=== PATIENT | female | born 1960 | race Caucasian/White ===

== ENCOUNTER 2020-01-28 15:19 | Outpatient (CLI) | payer OTHER, SELFPAY ==
--- NOTE | ~2020-01-28 | MM_ITS ---
EXAMINATION: MM screening billy BI w carolyn HISTORY: Screening mammogram TECHNIQUE: Craniocaudal and mediolateral oblique 3-D tomosynthesis images were obtained and synthetic 2-D images were generated. CAD analysis was submitted and interpreted. COMPARISON: 12/06/2018, 11/24/2017, 11/18/2016 bilateral digital screening mammogram examinations BREAST PARENCHYMAL COMPOSITION: There are scattered areas of fibroglandular density. FINDINGS: There is no evidence of suspicious mass, calcification, or architectural distortion to sugg est malignancy in either breast. There has been no suspicious interval change. IMPRESSION: 1. No mammographic evidence of malignancy. 2. Recommend routine screening mammography in one year. BI-RADS Category 1: Negative Reviewed, dictated and finalized at location A.
== END 2020-01-28 15:20 | disposition home or self-care (01) ==
LOC: ANHIMG 15:26
PROVIDERS: PCP Internal Medicine; Visit Provider Obstetrics & Gynecology
DX: Z12.31 Encounter for screening mammogram for malignant neoplasm of breast (principal)
CPT/HCPCS: 77063; 77067

== ENCOUNTER 2020-08-21 10:52 | Outpatient (CLI) | payer OTHER, SELFPAY | END 2020-08-21 10:53 | disposition home or self-care (01) | LOC: ANHCOVIDVC 10:52 | PROVIDERS: PCP Internal Medicine | DX: Z23 Encounter for immunization (principal) | CPT/HCPCS: 0001A; 91300 ==

== ENCOUNTER 2020-09-11 10:56 | Outpatient (CLI) | payer OTHER, SELFPAY | END 2020-09-11 10:57 | disposition home or self-care (01) | LOC: ANHCOVIDVC 10:56 | PROVIDERS: PCP Internal Medicine | DX: Z23 Encounter for immunization (principal) | CPT/HCPCS: 0002A; 91300 ==

== ENCOUNTER 2021-01-28 08:56 | Outpatient (CLI) | payer OTHER, SELFPAY ==
--- NOTE | ~2021-01-28 | MM_ITS ---
EXAMINATION: MM screening billy BI w carolyn HISTORY: Screening mammogram TECHNIQUE: Craniocaudal and mediolateral oblique 3-D tomosynthesis images were obtained and synthetic 2-D images were generated. CAD analysis was submitted and interpreted. COMPARISON: 01/28/2020, 12/06/2018, 11/24/2017 bilateral digital screening mammogram examinations BREAST PARENCHYMAL COMPOSITION: There are scattered areas of fibroglandular density. FINDINGS: Focal mammographic asymmetry is suggested in the posterior outer mid left breast (craniocau sangeeta Tomosynthesis image 22/66). Diagnostic left mammogram is recommended, with ultrasound if required . Otherwise there is no evidence of suspicious mass, calcification, or architectural distortion to sugg est malignancy in either breast. There has been no other suspicious interval change. IMPRESSION: 1. Focal asymmetry in posterior outer mid left breast 2. Diagnostic left mammogram is recommended, with ultrasound if required BI-RADS Category 0: Incomplete: Needs additional imaging evaluation. Reviewed, dictated and finalized at location A.
== END 2021-01-28 08:57 | disposition home or self-care (01) ==
LOC: ANHIMG 08:57
PROVIDERS: PCP Internal Medicine; Visit Provider Obstetrics & Gynecology
DX: Z12.31 Encounter for screening mammogram for malignant neoplasm of breast (principal); R92.8 Other abnormal and inconclusive findings on diagnostic imaging of breast
CPT/HCPCS: 77063; 77067

== ENCOUNTER 2021-08-16 11:16 | Outpatient (CLI) | payer OTHER, SELFPAY ==
--- NOTE | ~2021-08-16 | MMUS_ITS ---
EXAMINATION: MM diagnostic billy LT w carolyn, US breast LT limited HISTORY: Focal asymmetry reported in posterior outer mid left breast on 01/28/2021 craniocaudal mammog raphic Tomosynthesis image TECHNIQUE: Additional 3-D tomosynthesis images of the left breast were performed and synthetic 2-D im ages were generated. CAD analysis was submitted and interpreted. High resolution upper outer quadrant left breast ultrasound was performed. COMPARISON: 01/28/2021 bilateral screening mammogram BREAST PARENCHYMAL COMPOSITION: There are scattered areas of fibroglandular density. FINDINGS: MAMMOGRAPHIC FINDINGS: There is a history of prior benign left breast biopsy over 20 years ago. No suspicious mass or architectural distortion, malignant calcification, skin thickening or retractio n or significant new or developing density is detected. ULTRASOUND: No suspicious mass or shadowing is detected in the upper outer quadrant of the left breast. IMPRESSION: 1. No mammographic evidence of malignancy 2. Routine mammographic screening is recommended. BI-RADS Category 1: Negative Reviewed, dictated and finalized at location A. IMPRESSION: 1. No mammographic evidence of malignancy 2. Routine mammographic screening is recommended. BI-RADS Category 1: Negative
== END 2021-08-16 11:17 | disposition home or self-care (01) ==
PROVIDERS: PCP Internal Medicine; Visit Provider Obstetrics & Gynecology
DX: R92.8 Other abnormal and inconclusive findings on diagnostic imaging of breast (principal)
CPT/HCPCS: 76642; 77061; 77065; G0279

== ENCOUNTER 2022-12-14 15:50 | Outpatient (CLI) | payer OTHER, SELFPAY ==
--- NOTE | ~2022-12-14 | MM_ITS ---
EXAMINATION: MM screening [facility] carolyn HISTORY: Screening mammogram TECHNIQUE: Craniocaudal and mediolateral oblique 3-D tomosynthesis images were obtained and synthetic 2-D images were generated. CAD analysis was submitted and interpreted. COMPARISON: 08/16/2021, 01/28/2021, 01/28/2020 BREAST PARENCHYMAL COMPOSITION: There are scattered areas of fibroglandular density. FINDINGS: No suspicious mass, calcification, or architectural distortion are identified in either catherine ast to suggest malignancy. There has been no suspicious interval change. IMPRESSION: 1. No mammographic evidence of malignancy. 2. Recommend routine screening mammography in one year. BI-RADS Category 1: Negative Reviewed, dictated and finalized at location A.
== END 2022-12-14 15:51 | disposition home or self-care (01) ==
LOC: ANHIMG 15:56
PROVIDERS: PCP Internal Medicine; Visit Provider Obstetrics & Gynecology
DX: Z12.31 Encounter for screening mammogram for malignant neoplasm of breast (principal)
CPT/HCPCS: 77063; 77067

== ENCOUNTER 2023-06-23 11:11 | Outpatient (CLI) | payer OTHER, SELFPAY ==
--- NOTE | ~2023-06-23 | CT_ITS ---
Non-contrast CT scan of the Abdomen and Pelvis Clinical indication: Left flank pain Technique: 2.5 mm axial scans were obtained through the abdomen and pelvis without intravenous or or al contrast. Dose reduction technique was used on this scan by utilizing automated exposure control a nd iterative reconstruction technique. The dose-length product (DLP) was 295.58 mGy-cm. Findings: Images through the lung bases reveal no abnormalities. There is no evidence of renal or ureteral calculi. The kidneys and the ureters are nondilated. The liver, spleen, pancreas, gallbladder, and adrenals appear normal. There are atherosclerotic calci fications of the aorta. There is no evidence of bowel obstruction. There is lipoma at the descending duodenum, likely intralu vivek, measuring 3 cm in maximum length. Images through the pelvis were performed. There is no evidence of ascites or lymphadenopathy. Urinary bladder unremarkable. No pelvic mass seen. Impression: No acute abnormality evident. 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 Reviewed, dictated and finalized at [facility]. OAT PILOT Impression: No acute abnormality evident. 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
== END 2023-06-23 11:12 ==
LOC: MICIMG 11:11
PROVIDERS: PCP Internal Medicine; Visit Provider Internal Medicine
DX: R10.9 Unspecified abdominal pain (principal)
CPT/HCPCS: 74176

== ENCOUNTER → 2023-07-06 09:07 | Outpatient (CLI) | payer OTHER, SELFPAY ==
--- NOTE | ~2023-07-06 | MR_ITS ---
EXAMINATION: MR lumbar spine wo con DATE: 07/06/2023 09:36 INDICATION: Low back pain. TECHNIQUE: Magnetic resonance imaging (MRI) of the lumbar spine was performed without intravenous con trast. Sequences included sagittal T2-weighted FSE, sagittal T2-weighted FS FSE, sagittal T1-weighted FSE, and axial T2-weighted FSE. COMPARISON: None FINDINGS: Bone alignment is normal. Vertebral body heights are normal. There is mildly decreased disc height at L4-L5 and severely decreased disc height at L5-S1. The distal spinal cord signal intensity is normal. The conus medullaris is at L2. The following disc levels are specifically discussed: L1-L2: The disc does not extend beyond the endplate margin. There is no facet joint osteoarthritis. T here is no neural foraminal stenosis. There is no central canal stenosis. L2-L3: The disc is bulging. There is mild bilateral facet joint osteoarthritis. There is mild bilater al neural foraminal stenosis. There is no central canal stenosis. L3-L4: The disc is bulging. There is mild bilateral facet joint osteoarthritis. There is mild bilater al neural foraminal stenosis. There is mild central canal stenosis. L4-L5: The disc is bulging. There is moderate right and severe left facet joint osteoarthritis. There is mild right and moderate left neural foraminal stenosis. There is mild central canal stenosis. L5-S1: The disc is bulging and has an annular fissure. There is severe bilateral facet joint osteoart hritis. There is moderate bilateral neural foraminal stenosis. There is mild central canal stenosis. IMPRESSION: 1. Severe lower lumbar spondylosis. Reviewed, dictated and finalized at location A. ASTRUCTURE SECURITY ARCHITECT
== END ==
PROVIDERS: PCP Internal Medicine; Visit Provider Internal Medicine
DX: M47.896 Other spondylosis, lumbar region (principal)
CPT/HCPCS: 72148

== ENCOUNTER 2023-12-20 09:23 | Outpatient (CLI) | payer OTHER, SELFPAY ==
--- NOTE | ~2023-12-20 | MM_ITS ---
EXAMINATION: MM screening billy BI w carolyn HISTORY: Screening TECHNIQUE: Craniocaudal and mediolateral oblique 3-D tomosynthesis images were obtained and synthetic 2-D images were generated. CAD analysis was submitted and interpreted. COMPARISON: Comparison to multiple prior studies sequentially, with oldest reviewed study dated 02/06. BREAST PARENCHYMAL COMPOSITION: Not dense: There are scattered areas of fibroglandular density. FINDINGS: There is no evidence of suspicious mass, calcification, or architectural distortion to sugg est malignancy in either breast. There has been no suspicious interval change. IMPRESSION: 1. No mammographic evidence of malignancy. 2. Recommend routine screening mammography in one year. BI-RADS Category 1: Negative Reviewed, dictated and finalized at location B.
== END 2023-12-20 09:24 | disposition home or self-care (01) ==
LOC: ANHIMG 09:24
PROVIDERS: PCP Internal Medicine; Visit Provider Obstetrics & Gynecology
DX: Z12.31 Encounter for screening mammogram for malignant neoplasm of breast (principal)
CPT/HCPCS: 77063; 77067

== ENCOUNTER 2024-11-05 12:43 | Outpatient (CLI) | payer MEDICARE, SELFPAY ==
--- NOTE | ~2024-11-05 | DEXA_ITS ---
Bone Density Report Name: CARINA STALEY Age: 64 Sex: Female Ethnicity: White Date of : 1960 Indication: postmenopausal; screening for osteoporosis; asthma or emphysema; Referring Provider: KILLIAN DUKES Study: Bone densitometry was performed. Exam Date: November 05, 2024 Accession number: [id number] Bone Density: Region BMD T-score Z-score Classification AP Spine(L2, L3, L4) 1.026 -0.5 1.4 Normal Femoral Neck (Left) 0.672 -1.6 -0.1 Osteopenia Total Hip (Left) 0.889 -0.4 0.8 Normal Femoral Neck (Right) 0.712 -1.2 0.3 Osteopenia Total Hip (Right) 0.878 -0.5 0.7 Normal Femoral Neck Mean 0.692 -1.4 0.1 Osteopenia Total Hip Mean 0.883 -0.5 0.8 Normal World Health Organization criteria for BMD impression classify patients as: Normal (T-score at or above -1.0), Osteopenia (T-score between -1.0 and -2.5), or Osteoporosis (T-score at or below -2.5). 10-year Fracture Risk(1): Major Osteoporotic Fracture 8.1% Hip Fracture 1.6% Reported Risk Factors: [place] (), Neck BMD=0.672, BMI=20.3, smoking (1) FRAX(R) Version 3.08. Fracture probability calculated for an untreated patient. Fracture probability may be lower if the patient has received treatment. Clinical Information Provided by Patient: Smokes Has the following medical conditions: Asthma or Emphysema Patient maximum height was 65 Menopause Age: 34 No regular weight bearing exercise Does not regularly consume dairy products Drinks caffeinated beverages Onset of menses at age 11 Number of children 2 Impression: The patient has low bone mass, based on the Left Femoral Neck T-score. The patient has risk factors, including: smoking. Discussion: BONE DENSITY IS LOW AT ONE OR MORE SKELETAL SITES. This patient's lowest T-score is low at one or more skeletal sites. It meets the World Health Organization's (WHO) criteria for ?low bone mass? (T-score between -1.0 and -2.5). The patient's 10-year risk of fracture as calculated by FRAX is less than the threshold where pharmacological therapy is recommended by the National Osteoporosis Foundation (NOF). However, all treatment decisions require clinical judgment and consideration of individual patient factors, including patient preferences, comorbidities, previous drug use, risk factors not captured in the FRAX model (e.g., frailty, falls, vitamin D deficiency, increased bone turnover, interval significant decline in bone density) and possible under or overestimation of fracture risk by FRAX. The patient should follow a healthful lifestyle (good nutrition with adequate calcium and vitamin D, and appropriate weight-bearing exercise). Follow-Up: Consider repeating this study in 2 to 3 years to reassess this patient's status, or sooner if there is some new clinical indication. Reported by: LANIE on 11/05/2024 1:03:00 PM. Reviewed, dictated and finalized at location A.
--- OUTSIDE RECORDS SUMMARY | 2024-11-05 12:49 | XMS_ITS | Continuity of Care Document ---
Author Organization [facility] Address [address] [place] [address] [address] [place] [address] Phone Care Team Providers Care Card Feeder Name Role Phone [facility], [facility] Unavailable Unavail able Madelyn Mayfield Unavailable Unavailable Procedures Procedure Date SV Plastic Sph [place] To +/- 4 0 Post-op Follow-up Visit [...] Diagnoses Date Provider Providers Copied on Encounter [facility], [address], [place], [place], [address], [place] tel:[phone] [facility] No Information 0 [facility]. [address] [facility], [address], [place], [place], [address], [place]. tel:[phone] Referring Provider: Celi Lala, [address], [place], [address]. tel:[phone] g Provider: Madelyn Mayfield, [address] [place], [address]. tel:[phone] [facility], [address] [place] [address] [address], [place], [place], [address], tel:[phone] [facility] No Information Oct-2 2-201 0 Rani Munroe [address] , [address], [place], [facility], [place]. tel:[phone] [facility], [address] [place] [address] [address], [place], [place], [address], [place] tel:[phone] [facility] No Information Oct-0 5-201 0 Rani Simmonsn. [address] [facility] , [address], [place], [facility], [place]. tel:[phone] [facility], [address] [place] [address] [address], [place], [place], [address], [place] tel:[phone] [facility] No Information Sep-2 3-201 0 Rani Munroe [address], [place], [facility], [place]. tel:[phone] [facility], [address] [place] [address] [address], [place], [place], [address], [place] tel:[phone] [facility] No Information Sep-2 2-201 0 Rani Munroe [address], [place], [facility], [place]. tel:[phone] [facility], [address] [place] [address] [address], [place], [place], [address], [place] tel:[phone] [facility] No Information Sep-1 0-201 0 Rani Munroe [address], [place], [facility], [place]. tel:[phone] Referring Provider: Celi Lala, [address], [place], [address]. tel:[phone] [facility], [address] [place], [place] [address] [address], [place], [place], [address], tel:[phone] [facility] No Information Mar-3 0-201 0 Krishnasamy Feng. [address] [place] [address], [facility], [place]. tel:[phone] Referring Provider: Feng Jose, [address] [place] [address], [facility]. tel:[phone] [facility], [address] [place], [place] [address] [address], [place], [place], [address], [place] tel:[phone] [place] [address] No Information Mar-2 2-201 0 [facility]. [address] [facility], [facility] [address], [place], [place], [address], [place]. tel:[phone] Referring Provider: Feng Jose, [address] [place] [address], [facility]. tel:[phone] parra Provider: Deacon Mooney, [address] [place] [address], [facility]. tel:[phone] [facility], [address] [place], [place] [address] [address], [place], [place], [address], [place] tel:[phone] [place] [address] No Information Mar-1 6-201 0 Krishnasamy Feng. [address] [place] [address], [facility], [place]. tel:[phone] Referring Provider: Rahat Zimmerman, [address] [place] [address], [facility]. tel:[phone] Family History Family Member Type Diagnosis Age At Onset No Information Payers Payer name Insurance type Covered constitution party ID Authoriza tion(s) No Information Social [...]
--- OUTSIDE RECORDS SUMMARY | 2024-11-05 12:49 | XMS_ITS | Clinical Summary ---
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 9 Active cyclobenzaprine 10 MG tablet Take 10 mg by mouth 3 (three) times daily as needed. 9 Active hydrocodone-acetam inophen 10-325 MG tablet Take by mouth 2 (two) times a day. 9 Active estrogens, conjugated,-methyl testosterone 1.25-2.5 mg tablet 9 Active venlafaxine XR 150 MG 24 hr capsule 9 Active fluticasone furoate-vilanterol (BREO ELLIPTA) 200-25 MCG/INH inhalerIndications :Moderate persistent asthma without complication (HHS/HCC),Simple chronic bronchitis (CMS/HCC HHS/HCC) Inhale 1 puff into the lungs daily. 3 Inhaler 1 9 Active levothyroxine 75 MCG tabletIndications: Acquired hypothyroidism Take 1 tablet (75 mcg total) by mouth daily. 90 tablet 0 Active hydrocodone-acetam inophen 5-325 MG tabletIndications: Chronic Pain Take 1 tablet by mouth every 6 (six) hours as needed for Pain. Indications: Chronic Pain 60 tablet 0 Active LISINOPRIL 10 MG tabletIndications: Essential hypertension TAKE 1 TABLET BY MOUTH EVERY DAY 30 tablet 1 0 Active Active Problems Problem Noted Date Diagnosed Date Major depressive disorder wi th single episode, in partial remission 04/25/2019 Fibromyalgia 04/23/2019 Asthma ([facility]) 04/23/2019 Vitamin D deficiency 04/23/2019 DDD (degenerative disc disease), lumbar 04/23/20 Hyperlipemia 04/23/2019 COPD (chronic obstructive pu lmonary disease) ([facility]) 04/23/2019 Acquired hypothyroidism 04/23/2019 Immunizations Immunization Administration Dates Next Due Influenza Adult (Generic) 02/05/2019 Pneumococcal (Prevnar 13) 04/23/2019 Zoster (Zostavax) 91592 Unt/0.65Ml 04/25/2019 Family History Medical History Relation Comments Hypertension Father Parkinson's Disease Father Arthritis Mother CHF Mother Hypertension Mother ALS Sister Relation Status Comments Father Mother Sister Social History Tobacco Use Types Packs/Day Years Used Date Smoking Tobacco: Former Cigarettes 1 30 1 06/24/1973 - 04/23/2004 Smokeless Tobacco: Never Alcohol Use Standard Drinks/Week Comments No 0 (1 standard drink = 0.6 oz pur e alcohol) AUDIT-C Answer Date Recorded Frequency of Alcohol Consumption Never 04/23/2019 Average Number of Drinks Not on file 019 Frequency of Binge Drinking Not on file 04/07 PHQ-2 Answer Date Recorded PHQ-2 Score 4 04/23/2019 Comments Unknown Sex and Gender Information Value Date Recorded Sex Assigned at Not on file Legal Sex Female 11:28 AM [employer]ATION SAL[employer]ENT Gender Identity Not on file Sexual Orientation Not on file Last Filed Vital Signs Vital Sign Reading Time Taken Comments Blood Pressure 176/91 04/23/2019 9:21 AM [employer]ENT Pulse 74 04/23/2019 8:32 AM [employer] SAL[employer]ENT Temperature 36.3 C (97.4 F) 04/23/2019 8:32 AM [employer]ATION SAL[employer] AGENT Respiratory Rate 16 04/23/2019 8:32 AM [employer]ATION SALES AGENT Oxygen Saturation 98% 04/23/2019 8:32 AM [employer]ATION SALES AGENT Inhaled Oxygen Concentration - - Weight 64.9 kg (143 lb) 04/23/2019 8:32 AM [employer]ATION SAL[employer] AGENT Height 165.1 cm (5' 5) 04/23/2019 8:32 AM [employer]ATION SAL[employer] AGENT Body Mass Index 23.8 04/23/2019 8:32 AM [employer]ATION SALES AGENT Plan of Treatment Health Maintenance Due Date Last Done Comments Colorectal Cancer Screening Colonoscopy (10 Years) 1959 DTaP, Tdap and Td Vaccines (1 - Tdap) 1978 RSV Immunization or 60+ Years (1 - Risk 60-74 years 1-dose series) 2019 Pneumococcal Vaccine: 50+ Years (2 of 2 - PPSV23) 06/18/2019 04/23/2019 Zoster Vaccines (2 of 3) 06/20/2019 04/25/2019 Mammogram Screening 12/06/2020 12/06/2018, 11/24/2017, 09/10/2010, Additional history exists COVID-19 Vaccine ( - season) 2024 Dexa Scan (General) 2024 Hepatitis C Completed 05/03/2019 Meningococcal B Vaccine Aged Out No l onger eligible based on patient's age to complete this topic Meningococcal Vaccine Aged Out No gracie ana cristina eligible based on patient's age to complete this topic RSV Immunizations Under 20 Months Aged Out No longer eligible based on patient's age to complete this topic Procedures Procedure Name Priority Date/Time Associated Diagnosis Comments HEPATITIS C ANTIBODY Routine 05/03/2019 10:39 AM [employer]ATION SALES AGENT MAMMOGRAM GENERIC (SCAN ORDER) Routine 12/06/2018 from Last 3 Months or Most Recently Relevant to Health Maintenance Results * HEPATITIS C ANTIBODY (05/03/2019 10:39 AM [employer]ERVATION SALES AGENT) HEPATITIS C AB NON-REACT LORI NON-REACT LORI [facility] SIGNAL TO CUTOFF 0.03 <1.00 [facility] Comment: HCV antibody was non-reactive. There is no laboratory evidence of HCV infection. In most cases, no further action is required. However, if recent HCV exposure is suspected, a test for HCV RNA (test code 37325) is suggested. For additional information please refer to http://education.[place]/faq/LLH82q5 (This link is being provided for informational/ educational purposes only.) 05/03/2019 10:3 9 AM [employer]ERVATION SALES AGENT 05/03/2019 10:43 AM [employer]ATION SALES AGENT Narrative Resulting Agency Comment Performing Organization Information: Site ID: [id number] Name: [facility] Address: [address] [id number] Director: Mario Mccarty D.O., MPH [facility] Final Resul t [facility] * MAMMOGRAM (12/06/2018) Anatomical Region Laterality Modality Other us Documents Scanned SCANNING Final Result from Last 3 Months or Most Recently Relevant to Health Maintenance Insurance [employer] Care 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
--- OUTSIDE RECORDS SUMMARY | 2024-11-05 12:49 | XMS_ITS | Data Portability ---
Author Organization [place] [employer] [facility], Main Office Address [address] [place] [address] Care Team Providers Care Contracting Specialist Name Role Phone MALLORY ZIMMERMAN Primary Care Provider MALLORY ZIMMERMAN Referring Provider Assessment Encounter Date Assessment Date Assessment LastModified by Organization Details LastModified Time 07/08/2024 07/08/2024 The patient has rotator cuff tendonitis and likely some degenerative partial tearing of the rotator cuff. Through the arc of motion she did have some palpable crepitation in the subacromial region anteriorly. We talked about treatment options today in detail I have recommended a course of physical therapy for strengthening she is not heavily muscled very thin female she may benefit from strengthening. We also talked about anti-inflammator y medication currently she is on ibuprofen I suggested a course of oral prednisone she will hold on the ibuprofen and take the prednisone for 6 days then resume ibuprofen also talked about a shot of cortisone. She wanted proceed therefore under sterile conditions I injected the patient's right shoulder subacromial space in the office with 4 cc 0.5% bupivacaine and 20 mg of Kenalog. The patient tolerated procedure well. Her elbow exam was benign today no significant findings there I think her pain is radicular pain from her right shoulder rotator cuff tendonitis. I will see her back in 6 weeks to see what impact treatment has had. If her symptoms worsen or change an MRI scan may be indicated we will see how she does she voiced understanding agrees with the above plan she will call for any further problems difficulties or questions. Not available 07/08/2024 10:37:15 08/19/2024 08/19/2024 The patient has resolving right shoulder pain due to rotator cuff tendonitis that began with moving a pile of wood at her home. She has probably some partial-thicknes s rotator cuff tearing overall function and comfort level are good today strength is 5/5 in all planes. She is going to give it time see how things go she did her course of physical therapy she is currently on Celebrex she is going to continue with both of those on her own at home she will call for any further problems difficulties or questions. The patient also has what appears to be lateral epicondylitis of the right elbow as well as radial tunnel syndrome right elbow. We talked about treatment options for this in detail today we are going to give her a course of oral prednisone to take she will hold on the Celebrex while she is on the prednisone. At her request under sterile conditions I injected the patient's right elbow lateral epicondylar ECRB attachment and the right radial tunnel of the dorsum of the forearm with 2 cc of 0.5% bupivacaine and 20 mg of Kenalog each for a total of 2 injections. The patient tolerated the procedures well. We will give it 6-8 weeks see how she does see her back at that time. The patient voiced understanding and agreed with the above plan we talked about activity modification stretching and icing as well she will call for any further problems difficulties or questions. Not available 08/19/2024 10:47:41 10/21/2024 10/21/2024 The patient has resolving lateral epicondylitis of the right elbow as well as what appears to be resolved radial tunnel syndrome type symptoms. We talked about treatment options from here. She had stopped taking the Celebrex after the cortisone and oral prednisone. I have advised her she could resume the Celebrex however she states she would rather take ibuprofen [id number] . We talked about taking 600 mg 3 times a day with food if necessary for regular basis for awhile to see if she can knock out that last bit of residual minor pain. She will give it another month if her symptoms continue she will come back and see me we could try another shot of cortisone in the future if necessary. We talked about stretching icing and an elbow strap as well. She voiced understanding and agreed with the above plan she will call for any further problems difficulties or questions. Not available 10/21/2024 10:17:23 Plan of Treatment Reminders Order Date Submit Date Provider Last Modified By Organization Details Last Modified Time Details Appointments None recorded. Lab vitamin D, 25-hydroxy, total, serum 2023 024 [id number] [facility], [address] [place], [address], 15:51:54 lipid panel, serum 2023 024 [facility], [address] [place], [address], 15:51:53 CMP, serum or plasma 2023 024 [email or web address] [facility], [address] [place], [address], 15:51:54 CBC w/ auto diff 2023 024 [email or web address] [facility], [address] [place], [address], 15:51:53 TSH, serum or plasma 2023 024 [email or web address] [facility], [address] [place], [address], 15:51:53 T4, free, serum 2023 024 [facility], [address] [place], [address], 15:51:53 drug screen, urine 2023 024 [email or web address] [facility], [facility] Azeb Calero, [address], [place], [address], 15:51:54 Referral physical therapist referral - please contact patient to schedule 2024 025 CHELA Goddard, [address], [place], [address], 12:42:48 Procedures injection/a spiration joint/bursa (PROC) 2024 025 [email or web address] In-Office Order, Internal Use Only DO Not Attach Compendium DO Not Attach Compendium, Do Not Delete/merge, 5 10:30:37 injection/a spiration joint/bursa (PROC) 2024 025 [email or web address] In-Office Order, Internal Use Only DO Not Attach Compendium DO Not Attach Compendium, Do Not Delete/merge, 5 10:30:37 injection/a spiration joint/bursa (PROC) 2024 025 [email or web address] In-Office Order, Internal Use Only DO Not Attach Compendium DO Not Attach Compendium, Do Not Delete/merge, 10:31:12 Surgeries None recorded. Imaging XR, elbow 2024 025 [email or web address] [facility] [place], [address], [place], [address], 11:03:06 XR, shoulder 2024 025 [email or web address] [facility] [place], [address], [place], [address], 11:03:06 Medication Orders bupivacaine HCl 0.5 % (5 mg/mL) injection solution 2024 025 [email or web address] [facility] 2425, [address], [place], [address], 5 11:18:09 Kenalog 10 mg/mL suspension for injection 2024 025 [email or web address] [facility]25, [address], [place], [address], 5 11:18:09 bupivacaine HCl 0.5 % (5 mg/mL) injection solution [address], [address] [facility] [place], [place], [address], 5 11:18:09 Kenalog 10 mg/mL suspension for injection [address] 2425, [address] [facility] [place], [place], [address], 5 11:18:09 bupivacaine HCl 0.5 % (5 mg/mL) injection solution [address]25, [address] [facility] [place], [place], [address], 5 11:03:06 Kenalog 10 mg/mL suspension for injection [address] [place] [address] 2425, [address] [facility] [place], [place], [address], 5 11:03:06 prednisone 10 mg tablets in a dose pack [address] [place] [address] 2425, [address] [facility] [place], [place], [address], 5 11:03:06 Patient TargetsNo targets recorded. Patient Instructions Encounter Date Encounter Id Patient Instructions Last Modified By Organization Details Last Modified Time 01/25/2024 [id number] Follow-up for hypertension, hypothyroidism, hyperlipidemia, chronic pain syndrome all clinically stable. Will check blood work consisting of CBC, CMP, lipid, thyroid and vitamin-D level. Will also check an consider doing a CT scan of the abdomen for further evaluation of the lower abdominal pain. Some likely that this will demonstrate anything in light of the fact that she has no other associated either systemic or constitutional symptomatology. Follow-up in four months Additional Orders - Directives - Recommendations 1. CT scan of abdomen and pelvis With contrast for lower abdominal pain and nausea. Next Appointment: 4 Months Approximate Date: 05/24/2024 Portions of the record may have been created with voice recognition software. Occasional wrong-word or s ound-a-like substitutions may have occurred due to the inherent limitations of voice recognition software. Read the chart carefully and recognize, using context, where substitutions have occurred. [email or web address] Not available 01/25/2024 10:42:18 06/06/2024 [id number] Follow-up hypertension, hyperlipidemia, chronic pain syndrome, hypothyroidism. Clinically doing okay. The patient's laboratory studies were well within acceptable ranges. Instructed to let us know if the forearm pain does not improve in the next several days. May need to have an orthopedic referral. Will continue with current Rx and follow-up in six months Additional Orders - Directives - Recommendations 1. DEXA Scan Follow Up: 6 Months Approximate Date: 12/03/2024 Portions of record are template driven. When necessary additional context will be provided. Additionally some portions have been created with voice recognition software. Occasional wrong-word or s ound-a-like substitutions may have occurred due to the inherent limitations of voice recognition software. Read the chart carefully and recognize, using context, where substitutions may have occurred. Created: Mallory Zimmerman M.D. 06.06.2024 09:44 AM [email or web address] Not available 06/06/2024 10:44:12 Reason for Referral Physical Therapist Referral for Pain of right shoulder joint please contact patient to schedule Referring Physician: Preet Hong, Orthopedic Surgery, Encounter Date: 07/08/2024 Results Created Date Observation Date Name Description Value Unit Range Abnormal Flag Note LastModifiedBy Organization Detail LastModifiedTime 05/16/1905/17/2024 LIPID PANEL , STAND TEENA cholesterol, total 159 mg/dL <200 normal Not Available [employer] [address] [place], [address], 05/17/2024 23:52:33 05/16/1905/17/2024 LIPID PANEL , STAND TEENA HDL cholesterol 41 mg/dL > or = 50 low Not Available [employer] [facility] [address] [place], [address], 05/17/2024 23:52:33 05/16/1905/17/2024 LIPID PANEL , STAND TEENA triglyceride s 160 mg/dL <150 high Not Available [facility] [address] [place], [address], 05/17/2024 23:52:33 05/16/1905/17/2024 LIPID PANEL , STAND TEENA LDL-choleste rol 92 mg/dL _(talha c) normal Refer ence range : <100 Marquis able range <100 mg/dL for prima ry preve ntion ; <70 mg/dL for patie nts with CHD or diabe tic patie nts with > or = 2 CHD risk facto rs. LDL-C is now calcu lated using the Izzy n-Hop kins calcu sabra n, which is a valid ated novel walker sunshine accur acy than the Fried krysta equat ion in the estim ation of LDL-C . Izzy eastman SS et al. EDMUNDO. 2013; 310(1 9): 2061- 2068 (http ://ed ucati on.Contactually adelineFreak'n Genius. com/f aq/FA Q164) Not Available [facility] [address], [place], [address], 05/17/2024 23:52:33 05/16/1905/17/2024 LIPID PANEL , STAND TEENA chol/HDLC ratio 3.9 (calc ) <5.0 normal Not Available [facility] [address] [place], [address], 05/17/2024 23:52:33 05/16/1905/17/2024 LIPID PANEL , STAND TEENA non HDL cholesterol 118 mg/dL _(talha c) <130 normal For patie nts with diabe yumiko plus 1 major ASCVD risk facto r, treat ing to a non-H DL-C goal of <100 mg/dL (LDL- C of <70 mg/dL ) is consi dered a thera peuti c optio n. Not Available [facility] [address] [place], [address], 05/17/2024 23:52:33 05/16/19 25 05/17/2024 COMPR EHENS LORI METAB OLIC PANEL glucose 93 mg/dL 65-99 normal Fasti ng refer ence inter lisette Not Available [address], [address], 05/17/2024 23:52:35 05/16/19 25 05/17/2024 COMPR EHENS LORI METAB OLIC PANEL urea nitrogen (BUN) 15 mg/dL 7-25 normal Not Available [address], [address], 05/17/2024 23:52:35 05/16/19 25 05/17/2024 COMPR EHENS LORI METAB OLIC PANEL creatinine 0.85 mg/dL 0.50-1 .05 normal Not Available [address], [address], 05/17/2024 23:52:35 05/16/19 25 05/17/2024 COMPR EHENS LORI METAB OLIC PANEL eGFR 76 mL/mi n/1.7 3m2 > or = 60 normal Not Available [address], [address], 05/17/2024 23:52:35 05/16/19 25 05/17/2024 COMPR EHENS LORI METAB OLIC PANEL BUN/creatini ne ratio SEE NOTE: (calc ) 6-22 Not Repor liban: BUN and Creat inine are withi n refer ence range . Not Available [address], [address], 05/17/2024 23:52:35 05/16/19 25 05/17/2024 COMPR EHENS LORI METAB OLIC PANEL sodium 141 mmol/ L 135-14 6 normal Not Available [address], [address], 05/17/2024 23:52:35 05/16/19 25 05/17/2024 COMPR EHENS LORI METAB OLIC PANEL potassium 4.2 mmol/ L 3.5-5. 3 normal Not Available [address], [address], 05/17/2024 23:52:35 05/16/19 25 05/17/2024 COMPR EHENS LORI METAB OLIC PANEL chloride 105 mmol/ L 98-110 normal Not Available [address], [address], 05/17/2024 23:52:35 05/16/19 25 05/17/2024 COMPR EHENS LORI METAB OLIC PANEL carbon dioxide 29 mmol/ L 20-32 normal Not Available [address], [address], 05/17/2024 23:52:35 05/16/19 25 05/17/2024 COMPR EHENS LORI METAB OLIC PANEL calcium 9.6 mg/dL 8.6-10 .4 normal Not Available [address], [address], 05/17/2024 23:52:35 05/16/19 25 05/17/2024 COMPR EHENS LORI METAB OLIC PANEL protein, total 7.1 g/dL 6.1-8. 1 normal Not Available [address], [address], 05/17/2024 23:52:35 05/16/19 25 05/17/2024 COMPR EHENS LORI METAB OLIC PANEL albumin 4.0 g/dL 3.6-5. 1 normal Not Available [address], [address], 05/17/2024 23:52:35 05/16/19 25 05/17/2024 COMPR EHENS LORI METAB OLIC PANEL globulin 3.1 g/dL_ (calc ) 1.9-3. 7 normal Not Available [address] [place], [address], 05/17/2024 23:52:35 05/16/19 25 05/17/2024 COMPR EHENS LORI METAB OLIC PANEL albumin/glob ulin ratio 1.3 (calc ) 1.0-2. 5 normal Not Available [address], [address], 05/17/2024 23:52:35 05/16/19 25 05/17/2024 COMPR EHENS LORI METAB OLIC PANEL bilirubin, total 0.3 mg/dL 0.2-1. 2 normal Not Available [address], [address], 05/17/2024 23:52:35 05/16/19 25 05/17/2024 COMPR EHENS LORI METAB OLIC PANEL alkaline phosphatase 62 U/L 37-153 normal Not Available [address], [address], 05/17/2024 23:52:35 05/16/19 25 05/17/2024 COMPR EHENS LORI METAB OLIC PANEL AST 16 U/L 10-35 normal Not Available [address], [address], 05/17/2024 23:52:35 05/16/19 25 05/17/2024 COMPR EHENS LORI METAB OLIC PANEL ALT 17 U/L 6-29 normal Not Available [address], [address], 05/17/2024 23:52:35 05/16/19 25 05/17/2024 CBC (INCL UDES DIFF/ PLT) white blood cell count 10.2 thous and/u L 3.8-10 .8 normal Not Available [address], [address], 05/17/2024 23:52:36 05/16/19 25 05/17/2024 CBC (INCL UDES DIFF/ PLT) red blood cell count 4.05 aleta on/uL 3.80-5 .10 normal Not Available [address], [address], 05/17/2024 23:52:36 05/16/19 25 05/17/2024 CBC (INCL UDES DIFF/ PLT) hemoglobin 13.2 g/dL 11.7-1 5.5 normal Not Available [address], [address], 05/17/2024 23:52:36 05/16/19 25 05/17/2024 CBC (INCL UDES DIFF/ PLT) hematocrit 39.8 % 35.0-4 5.0 normal Not Available [address], [address], 05/17/2024 23:52:36 05/16/19 25 05/17/2024 CBC (INCL UDES DIFF/ PLT) MCV 98.3 fL 80.0-1 00.0 normal Not Available [address], [address], 05/17/2024 23:52:36 05/16/19 25 05/17/2024 CBC (INCL UDES DIFF/ PLT) MCH 32.6 pg 27.0-3 3.0 normal Not Available [address], [address], 05/17/2024 23:52:36 05/16/19 25 05/17/2024 CBC (INCL UDES DIFF/ PLT) MCHC 33.2 g/dL 32.0-3 6.0 normal For adult s, a sligh t decre ase in the calcu lated MCHC value (in the range of 30 to 32 g/dL) is most likel y not clini tono signi fican t; la nena er, it shoul d be inter prete d with [place]i [place] [facility] [place] with other red cell marta eters and the patie nt's clini talha condi tion. Not Available [address], [address], 05/17/2024 23:52:36 05/16/19 25 05/17/2024 CBC (INCL UDES DIFF/ PLT) RDW 12.5 % 11.0-1 5.0 normal Not Available [address], [address], 05/17/2024 23:52:36 05/16/19 25 05/17/2024 CBC (INCL UDES DIFF/ PLT) platelet count 328 thous and/u L 140-40 0 normal Not Available [address], [address], 05/17/2024 23:52:36 05/16/19 25 05/17/2024 CBC (INCL UDES DIFF/ PLT) MPV 12.1 fL 7.5-12 .5 normal Not Available [address], [address], 05/17/2024 23:52:36 05/16/19 25 05/17/2024 CBC (INCL UDES DIFF/ PLT) absolute neutrophils 6314 cells /uL 1500-7 800 normal Not Available [address], [address], 05/17/2024 23:52:36 05/16/19 25 05/17/2024 CBC (INCL UDES DIFF/ PLT) absolute lymphocytes 2662 cells /uL 850-39 00 normal Not Available [facility] [address], [address], 05/17/2024 23:52:36 05/16/19 25 05/17/2024 CBC (INCL UDES DIFF/ PLT) absolute monocytes 775 cells /uL 200-95 0 normal Not Available [facility] [address], [address], 05/17/2024 23:52:36 05/16/19 25 05/17/2024 CBC (INCL UDES DIFF/ PLT) absolute eosinophils 326 cells /uL 15-500 normal Not Available [address], [address], 05/17/2024 23:52:36 05/16/19 25 05/17/2024 CBC (INCL UDES DIFF/ PLT) absolute basophils 122 cells /uL 0-200 normal Not Available [address], [address], 05/17/2024 23:52:36 05/16/19 25 05/17/2024 CBC (INCL UDES DIFF/ PLT) neutrophils 61.9 % normal Not Available [address], [address], 05/17/2024 23:52:36 05/16/19 25 05/17/2024 CBC (INCL UDES DIFF/ PLT) lymphocytes 26.1 % normal Not Available [facility] [address], [address], 05/17/2024 23:52:36 05/16/19 25 05/17/2024 CBC (INCL UDES DIFF/ PLT) monocytes 7.6 % normal Not Available [facility] [address], [address], 05/17/2024 23:52:36 05/16/19 25 05/17/2024 CBC (INCL UDES DIFF/ PLT) eosinophils 3.2 % normal Not Available [facility] [address], [address], 05/17/2024 23:52:36 05/16/19 25 05/17/2024 CBC (INCL UDES DIFF/ PLT) basophils 1.2 % normal Not Available [facility] [address], [address], 05/17/2024 23:52:36 05/16/19 25 05/17/2024 T4, FREE T4, free 1.2 NG/dL 0.8-1. 8 normal Not Available [address], [address], 05/17/2024 23:52:37 05/16/19 25 05/17/2024 TSH TSH 0.23 mIU/L 0.40-4 .50 low Not Available [place] [address] [address] [place], [address], 05/17/2024 23:52:38 05/16/19 25 05/17/2024 VITAM IN D,25- OH,TO MITCHELL,I A vitamin D,25-oh,tota l,ia 38 NG/mL 30-100 normal Vitam in D Statu s 25-OH Vitam in D: Defic iency : <20 ng/mL Insuf ficie ncy: 20 - 29 ng/mL Optim al: > or = 30 ng/mL For 25-OH Vitam in D testi ng on patie nts on D2-morocho pplem entat ion and patie nts for whom quant itati on of D2 and D3 fract ions is requi red, the [facility](TM ) 25-OH VIT D, (D2,D 3), LC/MS /MS is recom violeta d: order code 90288 (deepti ents >2yrs ). See Note 1 Note 1 For addit ional infor owen navarro refer to http: //[facility] ramya Irwinia gnost ics.c om/fa q/FAQ 199 (This link is being provi ded for infor paola menard/ sidra tom purpo ses only. ) Not Available [facility] [address] [place], [address], 05/17/2024 23:52:38 05/16/19 25 05/17/2024 DRUG MONIT OR, BASE PANEL , SCREE N, URINE benzodiazepi ricardo NEGATI VE NG/mL <100 See Note A See Note A Not Available [facility] [address] [address], [place], [address], 05/17/2024 23:52:39 05/16/1905/17/2024 DRUG MONIT OR, BASE PANEL , SCREE N, URINE cocaine metabolite NEGATI VE NG/mL <150 See Note A See Note A Not Available [address], [place], [address], 05/17/2024 23:52:39 05/16/1905/17/2024 DRUG MONIT OR, BASE PANEL , SCREE N, URINE opiates POSITI VE NG/mL <100 abnormal See Note A See Note A Not Available [facility] [address] [address] [address], [place], [address], 05/17/2024 23:52:39 05/16/19 25 05/17/2024 DRUG MONIT OR, BASE PANEL , SCREE N, URINE oxycodone NEGATI VE NG/mL <100 See Note A See Note A Not Available [address], [place], [address], 05/17/2024 23:52:39 05/16/1905/17/2024 DRUG MONIT OR, BASE PANEL , SCREE N, URINE creatinine 210.1 mg/dL > or = 20.0 Not Available [address] [address], [place], [address], 05/17/2024 23:52:39 05/16/1905/17/2024 DRUG MONIT OR, BASE PANEL , SCREE N, URINE pH 5.7 4.5-9. 0 Not Available [facility] [address] [address] [address], [place], [address], 05/17/2024 23:52:39 05/16/19 25 05/17/2024 DRUG MONIT OR, BASE PANEL , SCREE N, URINE oxidant NEGATI VE mcg/m L <200 Not Available [address], [place], [address], 05/17/2024 23:52:39 05/16/19 25 05/17/2024 DRUG MONIT ORING TEMPL ATE notes and comments This drug testi ng is for medic al treat ment only. Dawna sis was perfo rmed as non-f orens ic testi ng and these resul ts shoul d be used only by healt royalre provi ders to rende r diagn osis or treat ment, or to monit or progr ess of medic al condi tions . Note A: The resul ts are presu mptiv e; based only on scree mathew metho ds, and they have not been confi rmed by a defin itive metho d. Healt hcare Provi ders needi ng Inter preta tion waqar owen gordon e conta ct us at 1.877 .40.R XTOX (1.87 7.407 .9869 ) M-F, 8am to 10pm EST Not Available [address] [address] [place], [address], 05/17/2024 23:52:41 07/09/19 25 XR, elbow No observ ation record ed. [email or web address] [facility] [place] [address] [facility] [address], [place], [address], 07/08/2024 10:37:40 07/09/19 25 XR, shoul cookie No observ ation record ed. [email or web address] [facility] [place] [address] [facility] [address], [place], [address], 07/08/2024 10:40:05 Result Notes None recorded. Problems Name Problem SNOMED Code Status Onset Date Resolution Date Notes Provider Name and Address Organization Details Recorded Time Acute sinusitis 17713584 Active 2021 Not Available [facility] 3 14:30:49 Asthma 414627493 Active Not Available [facility] 3 14:30:49 Sciatica 19102558 Active Not Available [facility] 3 14:30:49 Fibromyosi tis 93633055 Active Not Available [facility] 3 14:30:49 Dyspnea 026573954 Active Not Available [facility] 3 14:30:49 Pure hyperchole sterolemia 753476970 Active Not Available [facility] 3 14:30:49 Chest pain 76258049 Active Not Available [facility] 3 14:30:49 Vitamin D deficiency 14731122 Active 2021 Not Available [facility] 3 14:30:49 Depressive disorder 94757225 Active Not Available [facility] 3 14:30:49 Chronic pain syndrome 939870433 Active 2017 Not [address] [facility] 3 14:30:49 Chronic sinusitis 15979109 Active Not Available [facility] 3 14:30:49 Hypothyroi dism 94408650 Active Not Available [facility] 3 14:30:49 Cough 23431991 Active Not Available [facility] 3 14:30:49 Carpal tunnel syndrome 46551652 Active Not Available [facility] 3 14:30:49 Essential hypertensi on 53318418 Active 2019 Not [address] [facility] 3 14:30:49 Allergic rhinitis 59878710 Active Not Available [facility] 3 14:30:49 Muscle pain 24102382 Active 2021 Not [address] [facility] 3 14:30:49 Fibromyalg ia 748712863 Active 2022 Not Available [facility] 3 14:30:49 Pain in right foot 0354225212219 07 Active 2022 Not [address] [facility] 3 14:30:49 Low back strain 861797801 Active 2022 Mallory Zimmerman MD [address], [place] [address], [place], [address] , [facility] [employer] [facility] 3 16:46:45 Left flank pain 543720790 Active 2023 Mallory Zimmerman MD [address], [address], [place], [address] , [place] [facility] 4 15:05:04 Low back pain 019163025 Active 2023 Renetta Luther CMA null, [place] [facility] 4 10:36:55 Pain of multiple joints 22105698 Active 2023 Mallory Zimmerman MD [address], [address], [place], [address] , [place] - [facility] 4 10:45:04 Lower abdominal pain 36596544 Active 2023 Latonya [place] null, [place] [facility] 4 16:19:09 Acute bronchitis 82319845 Active 2023 Mallory Zimmerman MD [address], [address], [place], [address] , [facility] 4 13:11:58 Pain in right arm 519691278 Active 2024 Renetta Luther CMA null, [place] - [facility] 5 14:34:36 Pain of right wrist 3164479673702 00 Active 2024 Carolynn Mya, [employer] null, [place] [facility] 5 10:04:45 Pain of right elbow joint 1641948507979 9109 Active 2024 Carolynn Mya, [employer] [place] [place], [place] [facility] 5 10:19:19 Pain of right shoulder joint 7640349578723 9100 Active 2024 Carolynn Mya, [employer] [place], [place] [facility] 5 10:19:47 Tendinitis of right rotator cuff 9248060945020 9104 Active 2024 EDYTA Mills [address], [address], [place], [address] , [facility] 5 10:40:23 Partial thickness rotator cuff tear 551007031 Active 2024 EDYTA Mills [address], [address], [place], [address] , [facility] 5 10:41:06 Lateral epicondyli tis of right humerus 6165543339962 07 Active 2024 RICK Smith, [facility] 5 10:26:42 Radial tunnel syndrome 972553596 Active 2024 RICK Smith, [facility] 5 10:29:17 Postmenopa usal osteoporos is 368340588 Active 2024 Renetta AshkanELA null, [facility] 5 13:07:08 Problem Notes None recorded. Procedures Surgical History Date Name Laterality Status Provider Name and Address Organization Details Recorded Time partial hysterectomy completed Carolynn Roque CNA [facility] 07/08/2024 10:03:31 Bladder completed Carolynn Roque CNA [facility] 07/08/2024 10:03:59 Imaging Results None recorded. Procedure Notes None recorded. Medical Equipment None Reported. Allergies Allergen ID Allergen Name Allergen Category Reaction Reaction Severity Criticality Documentation Date Start Date Code Code System Note Provider Name and Address Organization Details Recorded Time 25475 Zocor medicatio n myalgias (muscle pain) Not available Not available 07/06/2022 21000 3 RxNorm Not Available [facility] 3 06:51:35 Medications Name Sig Start Date Stop Date Status Note LastModified by Organization Details LastModified Time celecoxib 200 mg capsule Take 1 capsule every day by oral route. 2024 active Not Available Not Available Not Avai lable cyclobenzap rine 10 mg tablet pt needs to call office for this refill 01/24 completed Not Available Not Available Not Available amoxicillin 500 mg capsule Take 1 capsule 3 times a day by oral route for 10 days. 2024 active Not Available Not Available Not Avai lable atorvastati n 40 mg tablet Take 1 tablet every day by oral route. 06/29 completed Not Available Not Available Not Available venlafaxine ER 75 mg capsule,ext ended release 24 hr One bid 09/30 completed Not Available Not Available Not Available doxycycline hyclate 100 mg capsule Take 1 capsule twice a day by oral route. 07/25 completed Not Available Not Available Not Available atorvastati n 20 mg tablet TAKE 1 TABLET BY MOUTH DAILY 04/09 completed Not Available Not Available Not Available venlafaxine 75 mg tablet TAKE 1 TABLET BY MOUTH TWICE DAILY 10/15 completed Not Available Not Available Not Available Zyrtec-D 5 mg-120 mg tablet,exte nded release Take 1 tablet every 12 hours by oral route. 2012 active Not Available Not Available Not Avai lable Detrol 2 mg tablet Take 1 tablet twice a day by oral route. active Not Available Not Available No t Available albuterol sulfate 2.5 mg/3 mL (0.083 %) solution for nebulizatio n Inhale 3 mL 3 times a day by nebulizat ion route. active Not Available Not Available No t Available oxybutynin chloride ER 10 mg tablet,exte nded release 24 hr 01/24 completed Not Available Not Available Not Available Prozac 40 mg capsule Take 1 capsule every day by oral route. active Not Available Not Available No t Available ibuprofen 800 mg tablet Take 1 tablet 3 times a day by oral route. 07/25 completed Not Available Not Available Not Available fluconazole 150 mg tablet TAKE 1 TABLET BY MOUTH EVERY DAY 01/24 completed Not Available Not Available Not Available benzonatate 200 mg capsule Take 1 capsule 3 times a day by oral route. 06/06 completed Not Available Not Available Not Available Medrol (Armin) 4 mg tablets in a dose pack As Directed 01/24 completed Not Available Not Available Not Available bupivacaine HCl 0.5 % (5 mg/mL) injection solution Take 10 mg by injection route. 2024 active Not Available Not Available Not Avai lable prednisone 20 mg tablet One TID for 3 days then One BID for 3 days then One daily for 3 days 07/25 completed Not Available Not Available Not Available Zithromax Z-Armin 250 mg tablet Take 2 TABLET EVERY DAY by oral route for 1 day then one daily 06/06 completed Not Available Not Available Not Available venlafaxine ER 150 mg capsule,ext ended release 24 hr TAKE 1 CAPSULE BY MOUTH DAILY 2024 active Not Available Not Available Not Avai lable Detrol LA 4 mg capsule,ext ended release Take 1 capsule every day by oral route. active Not Available Not Available No t Available hydrocodone 10 mg-acetamin ophen 325 mg tablet take one tablet three times a day DX: M79.7 2024 active Not Available Not Available Not Avai lable levothyroxi ne 75 mcg tablet TAKE 1 TABLET DAILY FOR THYROID - DOSAGE CHANGE active Not Available Not Available No t Available prednisone 10 mg tablets in a dose pack Take 1 tab by mouth, 3 times a day for 3 daysTake 1 tab by mouth 2 times a day for 2 daysTake 1 tab by mouth once a day for 1 day 2024 active Not Available Not Available Not Avai lable Tessalon Perles 100 mg capsule Take 1 capsule 3 times a day by oral route. active Not Available Not Available No t Available levothyroxi ne 88 mcg tablet Take 1 tablet by mouth once daily 2024 active Not Available Not Available Not Avai lable Kenalog 10 mg/mL suspension for injection Take 10 mg by injection route. 2024 active [facility] [place]: [phone] Not Available Not Available Not Available hydrocodone 7.5 mg-acetamin ophen 325 mg tablet Take 1 tablet twice a day by oral route. 09/27 completed Not Available Not Available Not Available Prozac 20 mg capsule Take 1 capsule every day by oral route. 09/05 completed Not Available Not Available Not Available lisinopril 10 mg tablet Take 1 tablet by mouth once daily 2024 active Not Available Not Available Not Avai lable esterified estrogens-m ethyltestos terone 1.25 mg-2.5 mg tablet TAKE 1 TABLET BY MOUTH EVERY DAY active Not Available Not Available No t Available diclofenac sodium 75 mg tablet,gigi yed release Take 1 tablet twice a day by oral route. 09/30 completed Not Available Not Available Not Available mupirocin 2 % topical ointment APPLY A SMALL AMOUNT TO THE AFFECTED AREA BY TOPICAL ROUTE 3 TIMES PER DAY 01/24 completed Not Available Not Available Not Available ergocalcife rol (vitamin D2) 1,250 mcg (50,000 unit) capsule TAKE 1 CAPSULE EVERY WEEK BY ORAL ROUTE. 01/24 completed Not Available Not Available Not Available albuterol sulfate HFA 90 mcg/actuati on aerosol inhaler INHALE 2 PUFFS EVERY 4 HOURS BY INHALATIO N ROUTE. 2023 active Not Available Not Available Not Avai lable Zocor 40 mg tablet Take 1 tablet every day by oral route at bedtime. 2012 active Not Available Not Available Not Avai lable amoxicillin 875 mg-potassiu m clavulanate 125 mg tablet Take 1 tablet every 12 hours by oral route. 01/24 completed Not Available Not Available Not Available cyclobenzap rine 5 mg tablet Take 1 tablet 3 times a day by oral route. 01/24 completed Not Available Not Available Not Available rosuvastati n 20 mg tablet Take 1 tablet by mouth once daily 2024 active Not Available Not Available Not Avai lable Spiriva with HandiHaler 18 mcg and inhalation capsules inhale one capsule daily 11/06 completed Not Available Not Available Not Available Lyrica 75 mg capsule Take 1 capsule twice a day by oral route. 07/25 completed Not Available Not Available Not Available Lyrica 150 mg capsule Take 1 capsule twice a day by oral route. 2012 active Not Available Not Available Not Avai lable Advair HFA 115 mcg-21 mcg/actuati on aerosol inhaler Inhale 2 puffs twice a day by inhalatio n route. 06/12 completed Not Available Not Available Not Available ProAir HFA 2 puffs four times a day 07/08 completed Not Available Not Available Not Available Dulera 100 mcg-5 mcg/actuati on HFA aerosol inhaler Inhale 2 puffs twice a day by inhalatio n route. 03/17 completed Not Available Not Available Not Available QNASL 80 mcg/actuati on nasal aerosol spray Heaters 2 sprays every day by intranasa l route. 07/25 completed Not Available Not Available Not Available Combivent Respimat 20 mcg-100 mcg/actuati on solution for inhalation Inhale 1 puff 4 times a day by inhalatio n route. 06/12 completed Not Available Not Available Not Available Breo Ellipta 100 mcg-25 mcg/dose powder for inhalation inhale one puff daily 02/06 completed Not Available Not Available Not Available Spiriva Respimat 2.5 mcg/actuati on solution for inhalation INHALE 2 PUFFS BY MOUTH EVERY DAY 06/12 completed Not Available Not Available Not Available albuterol sulfate 90 mcg/actuati on breath activated powder inhaler Inhale 2 puffs every 4 hours by inhalatio n route. 02/15 completed Not Available Not Available Not Available Breo Ellipta 200 mcg-25 mcg/dose powder for inhalation Inhale 1 puff every day by inhalatio n route. 06/12 completed Not Available Not Available Not Available Spiriva Respimat 1.25 mcg/actuati on solution for inhalation Inhale 2 puffs every day by inhalatio n route. 09/30 completed Not Available Not Available Not Available Trelegy Ellipta 100 mcg-62.5 mcg-25 mcg powder for inhalation Inhale 1 puff by mouth once daily 2024 active Not Available Not Available Not Avai lable albuterol sulf 90 mcg/actuati on breath activated powder inhaler,sen sor Inhale 2 puffs every 4 hours by inhalatio n route. 02/15 completed Not Available Not Available Not Available Gemtesa 75 mg tablet Take 1 tablet every day by oral route. 06/06 completed Not Available Not Available Not Available Vitals Date Recorded Body height Body mass index (BMI) Body weight Heart rate Body temperature Oxygen saturation Oxygen saturation in Arterial blood by Pulse oximetry Systolic blood pressure Diastolic blood pressure Provider Name and Address Organization Details Last Updated DateTime 165.1 cm 21 kg/m2 07258.6 4 g 82 /min 97 [degF] 97 % 97 % 138 mm[Hg] 60 mm[Hg] Nancy Christianson [employer] 10:33:03 Date Recorded Body height Body mass index (BMI) Body weight Provider Name and Address Organization Details Last Updated DateTime 07/08/2024 162.56 cm 20.1 kg/m2 39082.31 g Carolynn Roque CNA [employer] 07/08/2024 10:01:49 Date Recorded Body height Body mass index (BMI) Body weight Provider Name and Address Organization Details Last Updated DateTime 08/19/2024 162.56 cm 20.6 kg/m2 56740.08 g [facility]ynn [facility] [employer] 08/19/2024 10:16:22 Date Recorded Body height Body mass index (BMI) Body weight Provider Name and Address Organization Details Last Updated DateTime 10/21/2024 162.56 cm 20.4 kg/m2 57876.49 aida Roque CNA [facility] [employer] 10/21/2024 09:57:49 Date Recorded Body height Body mass index (BMI) Body weight Heart rate Body temperature Oxygen saturation Oxygen saturation in Arterial blood by Pulse oximetry Systolic blood pressure Diastolic blood pressure Provider Name and Address Organization Details Last Updated DateTime 165.1 cm 21.6 kg/m2 49123.0 1 g 100 /min 97 [degF] 98 % 98 % 122 mm[Hg] 78 mm[Hg] Nancy Christianson [facility] [employer] 10:30:30 Social History Question Answer Notes LastModified by Organizat ion Details LastModified Time Tobacco Smoking Status Current Every Day Smoker Carolynn Roque CNA gregg [facility] [employer] 07/08/2024 10:03:11 In The 14 Days Before Symptom Onset, Have You Had Close Contact With A Laboratory-confirm ed COVID-19 While That Case Was Ill? No [id number] Information not available 07/06/2022 In The 14 Days Before Symptom Onset, Have You Had Close Contact With A Person Who Is Under Investigation For COVID-19 While That Person Was Ill? No [id number] Information not available 07/06/2022 Have You Recently Traveled Abroad? No [id number] Information not available 07/06/2022 Sex: Unknown Functional Status Question Answer Note LastModified by Organization D etails LastModified Time What is your level of alcohol consumption? None [email or web address] Information not available 07/08/2024 Mental Status None recorded. Family History Relationship Description Onset Age of this Age Resolved Age Notes LastModified by Organization Details LastModified Time Father Hypertensive disorder [email or web address] Not available 2024 10:02:56 Mother Hypertensive disorder [email or web address] Not available 2024 10:02:56 Notes:Mother 69 HTN /DM Father 69 Parkinsonism/HTN Brother one in good health Sister from [facility] Medical History Condition Response NERVE DISEASE N BLINDNESS N RHEUMATIC FEVER N KIDNEY STONES N BLADDER PROBLEMS N MRSA N OTHER # 1 N POLIO N LUNG DISEASE/DISORDER N HISTORY OF DRUG ABUSE N RADIATION / CHEMOTHERAPY N COPD Y Other # 2 N BLOOD DISEASES N EAR OR HEARING PROBLEMS N MUMPS N SHINGLES N DEPRESSION (INCLUDING POST ) Y BOWEL PROBLEMS N STROKE/TIA N ULCERS N BENIGN PROSTATIC HYPERPLASIA N MEASLES N HYPOTENSION N MYOCARDIAL INFARCTION N OBESITY N GERD/NAUSEA N ANEURYSM N URINARY/BLADDER/KIDNEY PROBLEMS Y CORONARY ARTERY DISEASE (CAD) N ADDICTION CONCERNS N Impotence N ENDOMETRIOSIS N USE OF BLOOD THINNERS N SKIN PROBLEMS N GASTROINTESTINAL DISORDER N PERIPHERAL VASCULAR DISEASE N MUSCLE,JOINT OR BONE PROBLEMS N GASTROINTESTINAL BLEEDING N BLOOD CLOTS N ASTHMA N CATARACTS N ERECTILE DYSFUNCTION N VARICOSITIES N GI PROBLEMS N Low Testosterone N INFERTILITY N AIDS/HIV N CHEMOTHERAPY / RADIATION N LIVER DISEASE N MALE HYPOGONADISM N HYPERTENSION Y Deficiency N TOURETTE'S N ANXIETY DISORDER N BLOOD TRANSFUSION N ANEMIA/BLOOD DISORDER N CHRONIC EAR INFECTIONS N BRONCHITIS N TUBERCULOSIS N GLAUCOMA N FOOT PROBLEM N DIVERTICULITIS N SLEEP APNEA N CHICKENPOX N INFECTIOUS DISEASE N PROSTATE N HEART ARRHYTHMIA N INSOMNIA N HIGH CHOLESTEROL / HYPERLIPIDEMIA Y EYE PROBLEMS N HYPERTHYROIDISM N EDEMA N CHRONIC PAIN SYNDROME N HYPOTHYROIDISM N CAROTID BLOCKAGE N CONSTIPATION N BACK / NECK PROBLEMS N HAVE YOU BEEN HOSPITALIZED OR SEEN IN [facility] IN THE PAST YEAR ? N ATHEROSCLEROSIS N BREAST PROBLEMS N DIALYSIS N ECZEMA N OSTEOPOROSIS N ARTHRITIS Y NO SIGNIFICANT PAST MEDICAL HISTORY N APPENDICITIS N DIABETES, TYPE N BAD TEETH N ENT N HEARTBURN / REFLUX N AUTISM SPECTRUM DISORDER (ASD) N HEPATITIS / LIVER DISEASE N GOUT N SLEEP DISORDER N ALZHEIMER'S DISEASE N Brain Problems N DEMENTIA N HERPES N SEIZURES/EPILEPSY N HEADACHES/MIGRAINES N VASCULAR DISEASE N PACEMAKER N Blood Disorder N DIZZINESS N HEART DISEASE/HEART PROBLEMS N KIDNEY DISEASE N MULTIPLE SCLEROSIS N CANCER: SPECIFY N CARDIAC ARRHYTHMIA N ATRIAL FIBRILLATION N Gall Stones N PULMONARY EMBOLISM N AUTOIMMUNE DISEASE N Gynecological HistoryNo gynecological history recorded. Obstetrics History GPAL:G 0 P 0 0 0 0 Immunizations Vaccine Type Date Status Note Provider Nam e and Address Organization Details Recorded Time SARS-COV-2 (COVID-19) vaccine, UNSPECIFIED 3 completed Nancy Luelder gregg, [facility] 03/24/2023 10:26:02 influenza, unspecified formulation 3 completed Nancy Lugoldya gregg, [facility] 03/24/2023 10:26:14 Influenza, split virus, trivalent, preservative 3 completed Not Available [facility] 07/06/2022 06:51:27 COVID-19, mRNA, LNP-S, bivalent, PF, 30 mcg/0.3 mL dose 2 completed Not Available [facility] 07/06/2022 06:51:27 Influenza, split virus, quadrivalent, preservative 2 completed Not Available [facility] 07/06/2022 06:51:27 COVID-19, mRNA, LNP-S, PF, 30 mcg/0.3 mL dose 2 completed Not Available [facility] 07/06/2022 06:51:27 COVID-19, mRNA, LNP-S, PF, 30 mcg/0.3 mL dose 1 completed Not Available [facility] 07/06/2022 06:51:27 SARS-COV-2 (COVID-19) vaccine, UNSPECIFIED 1 completed Not Available [facility] 07/06/2022 06:51:27 SARS-COV-2 (COVID-19) vaccine, UNSPECIFIED 1 completed Not Available [facility] 07/06/2022 06:51:27 Influenza, split virus, quadrivalent, preservative 9 completed Not Available [facility] 07/06/2022 06:51:27 Influenza, split virus, quadrivalent, PF 8 completed Not Available [facility] 07/06/2022 06:51:27 Influenza, split virus, quadrivalent, preservative 5 completed Not Available [facility] 07/06/2022 06:51:27 Influenza, split virus, quadrivalent, PF 1 completed Not Available [facility] 07/06/2022 06:51:27 Influenza, split virus, quadrivalent, PF 0 completed Not Available [facility] 07/06/2022 06:51:28 Influenza, split virus, quadrivalent, PF 6 completed Not [facility] 07/06/2022 06:51:28 Past Encounters Encounter ID Performer Location Encounter Start Date Encounter Closed Date Diagnosis/Indication Diagnosis SNOMED-CT Code Diagnosis ICD10 Code Diagnosis Note [id number] Mallory Zimmerman MD [facility] Internal Med [place] [address] [place] [address] y , [place] [address] 11/06/2020 00:00:00 11/06/2020 10:41:06 [id number] Mallory Zimmerman MD [facility] Internal Med [place] [address] [place] [address] [place] [address] 03/12/2021 00:00:00 03/12/2021 10:49:38 [id number] Mallory Zimmerman MD [facility] Internal Med [place] [address] [place] [address] [place] [address] 09/17/2021 00:00:00 09/17/2021 10:38:00 [id number] Mallory Zimmerman MD [facility] Internal Med [place] [address] [place] [address] [place] [address] 03/25/2022 00:00:00 03/25/2022 10:50:18 [id number] Mallory Zimmerman MD [facility] Internal Med [place] [address] [place] [address] [place] [address] [address] 09/23/2022 10:26:26 09/23/2022 11:14:36 Adult health examination 403232342 Z00.00 Depression screening 171 504651 Z13.31 Chronic pain syndrome 37 8877384 G89.4 Essential hypertension 28518680 I10 Hypothyroidism 12822391 E03.9 Pure hypercholesterolemia 497775865 E78.00 Vitamin D deficiency 347 89840 E55.9 [id number] Mallory Zimmerman MD [facility] Internal Med [place] [address] [place] [address] [place] [address] 03/24/2023 10:24:12 03/24/2023 10:40:08 Chronic pain syndrome 891878230 G89.4 Essential hypertension 51033664 I10 Hypothyroidism 24947022 E03.9 Pure hypercholesterolemia 809019790 E78.00 [id number] Mallory Zimmerman MD [facility] Internal Med [facility] [address], [address] [place] [address] 06/19/2023 14:31:56 06/19/2023 15:16:19 Left flank pain 648088267 R10.9 [id number] Mallory Zimmerman MD [facility] Internal Med [facility] [address] [place] [address] [place] [address] 09/28/2023 10:12:20 09/28/2023 10:54:40 Chronic pain syndrome 455579192 G89.4 Essential hypertension 82022745 I10 Pure hypercholesterolemia 682210171 E78.00 [id number] Mallory Zimmerman MD [facility] Internal Med [facility] [address] [place] [address] [place] [address] 01/25/2024 10:25:57 01/25/2024 10:49:32 Chronic pain syndrome 268318644 G89.4 Essential hypertension 85703491 I10 Hypothyroidism 80154642 E03.9 Pure hypercholesterolemia 721927849 E78.00 Asthma 790318354 J45.90 9 Long-term current use of opiate analgesic drug 3279856750 30012 Z79.891 Vitamin D deficiency 347 68200 E55.9 [id number] Mallory Zimmerman MD [facility] Primary Care [facility] [address] [address] [place] [address] 06/06/2024 10:14:55 06/06/2024 10:56:15 Chronic pain syndrome 732778721 G89.4 Essential hypertension 61931133 I10 Hypothyroidism 50597252 E03.9 Pure hypercholesterolemia 579857544 E78.00 [id number] Marbin Lewis MD [facility] [place] [address] [place] [address] 07/08/2024 09:48:45 07/08/2024 10:48:36 Pain of right elbow joint 0850170070 7988879 M25.521 Pain of ri ght shoulder joint 8529182441 9114493 M25.511 Tendinitis of right rotator cuff 3485665504 5741074 M67.813 Partial th ickness rotator cuff tear 860085617 M75.180 [id number] Marbin Lewis MD [facility] [place] 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 [place] [address] 10/21/2024 09:49:48 10/21/2024 10:34:11 Pain of right shoulder joint 5554784694 7395218 M25.511 Pain of ri ght elbow joint 3243241440 1985220 M25.521 Tendinitis of right rotator cuff 3613952259 8053777 M67.813 Partial th ickness rotator cuff tear 747094513 M75.101 Radial casi stevie syndrome 173953880 G56.31 Lateral ep icondylitis of right humerus 0030645753 71688 M77.11 Health Concerns Section Related Observation LastModified by Organization Detai ls LastModified Time None Recorded Concern Status LastModified by Organization Details LastModified Time None Recorded Advance Directives Directive None Recorded Payers Insurance Date Sequence Insurance Name Policy Number Policy Todd Covered Member ID Todd Member ID Guarantor Name 06/06/2024 1 [employer] (PPO) [id number] Esteban Ruvalcaba [id number] Maribel Ruvalcaba 10/21/2024 1 [facility] (MEDICARE REPLACEMENT/A DVANTAGE - HMO) [id number] Maribel Ruvalcaba [id number] Maribel Ruvalcaba Notes Date Note Type Note Provider Name and Address Organization Details Recorded Time 01/25/2024 text/html Patient Name: Martine RuvalcabaDate Of Service: January ( 01.25.2024 ): 1960 Age: 63 There has been approximately a 7 lb weight loss since 09/28/2023. This represents approximately a 5.1% change in weight. Weight change attributable to lifestyle changes. Vital Signs:Blood Pressure: Sitting Rt. Arm 122/78Pulse: Sitting 100 /min and RegularRespiratory Rate: 16Height 65 in or 1.7 mWeight 130 lb or 59.0 kgBMI 21.6Temperature: 97 F or 36.1 CPulse Oximetry: 98 % at rest on no oxygen Chief Complaint: Addressed in HPI Problems or conditions discussed in the HPI were the only ones reviewed during the encounter.Only social and family history addressed in the HPI were reviewed during this encounter. Attendant(s): NoneConstitutional and Systemic Symptoms:none Medication Reconciliation: from medication list. [id number]: CT scan of the abdomen and pelvis without contrast demonstrated what appears to be a lipoma the descending duodenum a likely intramural in location measuring approximately 3 cm in maximum length. No other evidence of any pathology otherwise in the abdomen. 07-06-2023: MRI of the lumbar spine shows severe lumbar spondylolysis. There is some mild central canal stenosis noted at L3-L4, L4-L5 and L5-S1. There is some bilateral foraminal stenosis noted. Does not appear to be surgical. Will consider pain management possible injections History of Present Illness #1. Essential Hypertension: Stage: Stage I Interval Neurological Complaints no headaches, dizziness, weakness, visual changes, ataxia, aphasia and apraxia. No shortness of breath, orthopnea or cardiovascular symptoms. No other symptoms related to end organ damage. Pressure has been under excellent control. Currently normal. No other end organ symptoms or findings. Therapy reviewed regarding management of hypertension and includes salt restriction and Lisinopril. #2. Type II Hypercholesterolaemia: Currently taking medication and tolerating well. No interval complaints of any muscle pain or arthralgia. No significant liver changes with medications. Last lipid panel: fair control. Therapy reviewed regarding treatment of cholesterol management and include diet. #3. Hx of hypothyroidism currently stable. Heat intolerance: no Fatigue: no Weight gain: no Difficulty concentrating: no Muscle Symptoms: none Skin Texture: normal Skin Color: unchanged Currently taking synthroid. #4. Chronic pain management for chronic lumbar, knees and hips Since last examination no significant change since last examination Interval Testing: noneHas tried NSAIDS partial relief requiring additional medication. Pain Description: constant, exacerbated by activity and interferes with enjoyment and ability to perform activities of daily living. Currently seeing or has seen in the past a Lunchroom Worker: No .Pain - Enjoyment of Life - General Activity ScalePain on Average: 5Enjoyment of Live: 4General Activity: 5Enjoyment of Life - General Activity Scale: 5Currently regimen consists of [place] as prescribed with no evidence of abuse or self prescribing. Current Average Morphine Milligram Approximate Equivalent: 30 mg approximated if taking full dosage daily. Recommend: NA.Benzodiazepines or other hypnotics: no.Alternative pain management modalities (acupuncture - behavior therapy- additional PT - SNRIs) have been discussed and have either been tried in the past or not acceptable alternatives to patient or not available in our location.Will kept medications the same.Urine Testing: will be performed and patient instructed that failure of testing within a 24 hour period from time of order may result in termination of medication.Controlled substance database yes and no discrepancies or multiple prescribers noted. Pill counts when available have been acceptable. No other signs of any abuse.Patient reports condition is stable and is able to function with the medication. Denies any misuse or adverse effects.TREATMENT OBJECTIVE: Enhance ability to manage pain independently, improved function and sustain quality of life. Recommendations or alternative therapies and lifestyle changes are discussed on each visit. Has shown improvement inf functionality. Has been educated on the side effects,risks and any black box warnings. Has verbalized the dangers of some of the medications regarding driving and cooperating heavy machinery and have advised against this. Active Medication ListGemtesa 75 MG TABLET, FILM COATED Once DailyIbuprofen 800 MG (TABLET - ORAL) One Tid Prn For PainSynthroid 0.088 MG (TABLET - ORAL) One Daily For ThyroidEemt One DailyAlbuterol Sulfate Hfa 0.09 MG /INH (AEROSOL, METERED - INHALATION) 2 Puffs Qid PrnTrelegy Ellipta 0.1 MG/INH- 0.0625 MG /INH- 0.025 MG /INH (POWDER - INHALATION) Once DailyNorco 325 MG-10 MG (TABLET - ORAL) One Three Times DailyFlexeril 10 MG (TABLET - ORAL) One Three Times A DayRosuvastatin 20 MG TABLET One DailyLisinopril 10 MG (TABLET - ORAL) QdVenlafaxine Hydrochloride 150 MG (CAPSULE, EXTENDED RELEASE - ORAL) One Daily Adverse Drug Reactions ReviewedZocor Myalgia Vaccination and [id number] [id number] Covid Booster Btfduem1547-28 Covid [id number] Shingrix Surgical Siomjbi6252-00 Right Cataract Preventative Testing( ) 12/20/2023 Mammogram 12/19/2024( ) 06/23/2023 Albumin 4.1 G/DL N( ) 10/07/2021 Cologuard 10/07/2024(X) 08/30/2010 DEXA Scan 08/30/2012 Social HistorySmoked one pack daily for approximately 15 years. 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 This represents approximately a 3.1% change in weight. Weight change attributable to lifestyle changes. Vital Signs:Blood Pressure: Sitting Rt. Arm 138/60Pulse: Sitting 82 /min and RegularRespiratory Rate: 16Height 65 in or 1.7 mWeight 126 lb or 57.2 kgBMI 21.0Temperature: 97 F or 36.1 CPulse Oximetry: 97 % at rest on no oxygen Chief Complaint: Addressed in HPI Problems or conditions discussed in the HPI were the only ones reviewed during the encounter.Only social and family history addressed in the HPI were reviewed during this encounter. Attendant(s): NoneConstitutional and Systemic Symptoms:none Medication Reconciliation: from medication list. [id number]: CT scan of the abdomen and pelvis without contrast demonstrated what appears to be a lipoma the descending duodenum a likely intramural in location measuring approximately 3 cm in maximum length. No other evidence of any pathology otherwise in the abdomen. 07-06-2023: MRI of the lumbar spine shows severe lumbar spondylolysis. There is some mild central canal stenosis noted at L3-L4, L4-L5 and L5-S1. There is some bilateral foraminal stenosis noted. Does not appear to be surgical. Will consider pain management possible injections History of Present Illness #1. Essential Hypertension: Stage: Stage I Interval Neurological Complaints no headaches, dizziness, weakness, visual changes, ataxia, aphasia and apraxia. No shortness of breath, orthopnea or cardiovascular symptoms. No other symptoms related to end organ damage. Pressure has been under excellent control. Currently normal. No other end organ symptoms or findings. Therapy reviewed regarding management of hypertension and includes salt restriction and Lisinopril. #2. Type II Hypercholesterolaemia: Currently not taking medication. No interval complaints of any muscle pain or arthralgia. No significant liver changes with medications. Last lipid panel: fair control. Therapy reviewed regarding treatment of cholesterol management and include diet and Rosuvastatin. #3. Hx of hypothyroidism currently stable. Heat intolerance: no Fatigue: no Weight gain: no Difficulty concentrating: no Muscle Symptoms: none Skin Texture: normal Skin Color: normal Currently taking synthroid. #4. Chronic pain management for chronic lumbar Since last examination no significant change since last examination Interval Testing: noneHas tried NSAIDS partial relief requiring additional medication. Pain Description: constant, exacerbated by activity and interferes with enjoyment and ability to perform activities of daily living. Currently seeing or has seen in the past a Lunchroom Worker: Intermittently .Pain - Enjoyment of Life - General Activity ScalePain on Average: 5Enjoyment of Live: 4General Activity: 5Enjoyment of Life - General Activity Scale: 5Currently regimen consists of 30 as prescribed with no evidence of abuse or self prescribing. Current Average Morphine Milligram Approximate Equivalent: NA mg approximated if taking full dosage daily. Recommend: no.Benzodiazepines or other hypnotics: kept medications the same.Alternative pain management modalities (acupuncture - behavior therapy- additional PT - SNRIs) have been discussed and have either been tried in the past or not acceptable alternatives to patient or not available in our location.Will not indicated and this time.Urine Testing: yes and no discrepancies or multiple prescribers noted.Controlled substance database yes and no discrepancies or multiple prescribers noted. Pill counts when available have been acceptable. No other signs of any abuse.Patient reports condition is stable and is able to function with the medication. Denies any misuse or adverse effects.TREATMENT OBJECTIVE: Enhance ability to manage pain independently, improved function and sustain quality of life. Recommendations or alternative therapies and lifestyle changes are discussed on each visit. Has shown improvement inf functionality. Has been educated on the side effects,risks and any black box warnings. Has verbalized the dangers of some of the medications regarding driving and cooperating heavy machinery and have advised against this. Last MONOGRAM TECHNICIAN: 09/08/2023Last Drug Screen: 05/16/2024Last Pain Contract! 01/25/2024ctive Medication ListIbuprofen 800 MG (TABLET - ORAL) One Tid Prn For PainSynthroid 0.088 MG (TABLET - ORAL) One Daily For ThyroidEemt One DailyAlbuterol Sulfate Hfa 0.09 MG /INH (AEROSOL, METERED - INHALATION) 2 Puffs Qid PrnTrelegy Ellipta 0.1 MG/INH- 0.0625 MG /INH- 0.025 MG /INH (POWDER - INHALATION) Once DailyNorco 325 MG-10 MG (TABLET - ORAL) One Three Times DailyFlexeril 10 MG (TABLET - ORAL) One Three Times A DayRosuvastatin 20 MG TABLET One DailyLisinopril 10 MG (TABLET - ORAL) QdVenlafaxine Hydrochloride 150 MG (CAPSULE, EXTENDED RELEASE - ORAL) One Daily Adverse Drug Reactions ReviewedZocor Myalgia Vaccination and Immunization(X) 2022- INFLUENZA( ) 2019- SHINGRIX( ) 2020- COVID PFIZER(X) 2022- COVID BOOSTER MODERNA Surgical [id number] Right Cataract Preventative Testing( ) 05/16/2024 Albumin 4.0 G/DL N( ) 12/20/2023 Mammogram 12/19/2025( ) 10/07/2021 Cologuard 10/07/2024(X) 08/30/2010 DEXA Scan 08/30/2012 Social HistorySmoked one pack daily for approximately 15 years. 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 Family HistoryMother 69 HTN/DMFather 69 Parkinsonism/HTNBrother one in good healthSister from ALS Active Medication ListIbuprofen 800 MG (TABLET - ORAL) One Tid Prn For PainSynthroid 0.088 MG (TABLET - ORAL) One Daily For ThyroidEemt One DailyAlbuterol Sulfate Hfa 0.09 MG /INH (AEROSOL, METERED - INHALATION) 2 Puffs Qid PrnTrelegy Ellipta 0.1 MG/INH- 0.0625 MG /INH- 0.025 MG /INH (POWDER - INHALATION) Once DailyNorco 325 MG-10 MG (TABLET - ORAL) One Three Times DailyFlexeril 10 MG (TABLET - ORAL) One Three Times A DayRosuvastatin 20 MG TABLET One DailyLisinopril 10 MG (TABLET - ORAL) QdVenlafaxine Hydrochloride 150 MG (CAPSULE, EXTENDED RELEASE - ORAL) One Daily Adverse Drug Reactions ReviewedZocor Myalgia Vaccination and Immunization(X) 2022- INFLUENZA( ) 2019- SHINGRIX( ) 2020- COVID PFIZER(X) 2022- COVID BOOSTER MODERNA Surgical [id number] Right Cataract Preventative Testing( ) 05/16/2024 Albumin 4.0 G/DL N( ) 12/20/2023 Mammogram 12/19/2025( ) 10/07/2021 Cologuard 10/07/2024(X) 08/30/2010 DEXA Scan 08/30/2012 Social HistorySmoked one pack daily for approximately 15 years. 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 Family HistoryMother 69 HTN/DMFather 69 Parkinsonism/HTNBrother one in good healthSister from ALS TEST RESULT RANGE UNITSCBC (INCLUDES DIFF/PLT) Date: 05/16/2024WHITE BLOOD CELL COUNT 10.2 3.8-10.8 THOUSAND/ULHEMOGLOBIN 13.2 11.7-15.5 G/DLHEMATOCRIT 39.8 35.0-45.0 %PLATELET COUNT 328 140-400 THOUSAND/ULCOMPREHENSIV E METABOLIC PANEL Date: 05/16/2024SODIUM 141 135-146 MMOL/LPOTASSIUM 4.2 3.5-5.3 MMOL/LGLUCOSE 93 65-99 MG/DLUREA NITROGEN (BUN) 15 7-25 MG/DLCREATININE 0.85 0.50-1.05 MG/DLEGFR 76 > OR = 60 ML/MIN/1.12W4QWEUNJJSZ, TOTAL 0.3 0.2-1.2 MG/DLALKALINE PHOSPHATASE 62 37-153 U/LAST 16 10-35 U/LALT 17 6-29 U/LLIPID PANEL, STANDARD Date: 5CHOLESTEROL, TOTAL 159 <200 MG/DLHDL CHOLESTEROL 41 > OR = 50 MG/DLTRIGLYCERIDES 160 <150 MG/DLLDL-CHOLESTEROL 92 MG/DL (CALC)T4, FREE Date: 05/16/2024T4, FREE 1.2 0.8-1.8 NG/DLTSH Date: 05/16/2024TSH 0.23 0.40-4.50 MIU/LVITAMIN D,25-OH,TOTAL,IA Date: 05/16/2024VITAMIN D,25-OH,TOTAL,IA 38 30-100 NG/ML Mallory Zimmerman MD [address] [facility], [place] [address], [place], [address], [facility] 06/06/2024 10:44:28 07/08/2024 text/html The patient is a 64-year-old female who presents with a 2 month history of right shoulder pain. She believes this started soon after moving a pile of wood she was throwing chunks would repetitively for quite awhile. She noted some aching pain in the shoulder that has persisted since then. It has worsened to the point where it is about an 8-9 on a scale of 1-10 keeps her awake at night she can not sleep on that side if she tries to push herself up out of bed with 1 arm this causes quite a bit of discomfort as well. She denies any weakness no loss of motion and did not really have any problems with the shoulder prior to this onset 2 months ago. She has no radicular pain down the arm other than into the upper portion of the arm not below the elbow. She denies any effusion or swelling does report some crepitation in the subacromial region of the shoulder. She has no numbness or tingling or neurovascular deficits and no pain in her neck. The patient has been taking ibuprofen 600 mg 2 to 3 times a day without significant relief as well. She comes in today for initial evaluation treatment of her right shoulder pain as described. She states at times the pain will go to the elbow we are going to get x-rays of her elbow as well as her shoulder today.A new past medical history sheet was reviewed and signed on the intake sheet of today's date drug allergies current medications family social history previous surgical history 10 point review of systems was reviewed and discussed in detail today with the patient. EDYTA Mills [address] [facility], [facility] [address], [place], [address], [place] [facility] 07/08/2024 10:42:24 08/19/2024 text/html Patient returns for recheck of her right shoulder and right elbow. The last time she was here she does have likely degenerative partial tearing of the rotator cuff she reports pain that radiates into the upper arm a little bit through the deltoid today she states a lot of the pain has resolved. She is feeling pretty good still has some occasional twinges of pain with certain motions or repetitive motion or heavy lifting. She went through a course of physical therapy did ibuprofen and is now on Celebrex. She comes in today stating that the shoulder is feeling better she does not have any loss of motion or weakness she has pain with certain things around the house. The patient also has elbow pain she has signs and symptoms consistent with probable lateral epicondylitis of the right elbow as well as radial tunnel syndrome. She states occasionally her hand will get numb and tingling on the top of the hand she has had a previous carpal tunnel release. Her main complaints are aching pain in the lateral elbow that radiates also from the radial tunnel down the forearm dorsally a bit. She denies any dysfunction loss of motion but she has a hard time do anything heavy or repetitive with the hand and forearm due to the fact that this reproduces her pain as described. Denies any numbness or tingling now had no history of weakness or injury. Comes in today for evaluation treatment of right elbow. We reviewed her previous x-rays in detail and they were negative for any bony abnormalities or osteoarthritis of the right elbow. EDYTA Mills [address], [address], [place], [address], [facility] 08/19/2024 10:49:14 10/21/2024 text/html The patient retu rns for recheck of her right elbow. She had lateral epicondylitis and also what appeared to be some radial tunnel syndrome. We treated her with nonsteroidal anti-inflammatory medication, oral prednisone and 2 injections, one for each problem. Previously she was having a lot of pain and was very limited in what she can do during the day now she reports that she is feeling quite a bit better with pain about a 2 to a 3 on a scale of 1-10 at its worse. It does not really bother her unless she does anything too heavy repetitive and she will get small twinges mainly over the lateral epicondylar region the radial tunnel pain seems to have basically disappeared. She denies any numbness or tingling or weakness no other dysfunction she comes in today for recheck and to talk about further treatment options if necessary. She is 2 months status post treatment. EDYTA Mills [address], [address], [place], [address], [facility] 10/21/2024 10:18:10 OBGyn Episode No OBEpisode recorded.
== END 2024-11-05 12:44 | disposition home or self-care (01) ==
LOC: CHSIMG 12:45
PROVIDERS: PCP Internal Medicine; Visit Provider Obstetrics & Gynecology
DX: Z78.0 Asymptomatic menopausal state (principal); M85.89 Other specified disorders of bone density and structure, multiple sites
CPT/HCPCS: 77080

== ENCOUNTER 2025-01-13 09:11 | Outpatient (CLI) | payer MEDICARE, SELFPAY ==
--- OUTSIDE RECORDS SUMMARY | 2010-03-09 19:00 | XMS_ITS | Continuity of Care Document ---
Author Organization [facility] Address [address] [place] [address] [address] [place] [address] Phone Care Team Providers Care Skin Lifter Bacon Name Role Phone [facility], [facility] Unavailable Unavail able Madelyn Mayfield Unavailable Unavailable Procedures Procedure Date SV Plastic Sph [place] To +/- 4 0 Post-op Follow-up Visit [...] Diagnoses Date Provider Providers Copied on Encounter [facility], [address], [place], [place], [address], [place] tel:[phone] [facility] No Information 0 [facility]. [address] [facility], [address], [place], [place], [address], [place]. tel:[phone] Referring Provider: Celi Lala, [address], [place], [address]. tel:[phone] g Provider: Madelyn Mayfield, [address] [place], [address]. tel:[phone] [facility] Eye [facility], [address] [place] [address] [address], [place], [place], [address], tel:[phone] [facility] No Information Oct-2 2-201 0 Rani Munroe [address] , [address], [place], [facility], [place]. tel:[phone] [facility], [address] [place] [address] [address], [place], [place], [address], [place] tel:[phone] [facility] No Information Oct-0 5-201 0 Rani Simmonsn. [address] [facility] , [address], [place], [facility], [place]. tel:[phone] [facility], [address] [place] [address] [address], [place], [place], [address], [place] tel:[phone] [facility] No Information Sep-2 3-201 0 Rani Munroe [address] , [address], [place], [facility], [place]. tel:[phone] [facility], [address] [place] [address] [address], [place], [place], [address], [place] tel:[phone] [facility] No Information Sep-2 2-201 0 Rani Munroe [address] , [address], [place], [facility], [place]. tel:[phone] [facility] Eye [facility], [address] [place] [address] [address], [place], [place], [address], [place] tel:[phone] [facility] No Information Sep-1 0-201 0 Rani Munroe [address], [place], [facility], [place]. tel:[phone] Referring Provider: Celi Lala, [address], [place], [address]. tel:[phone] [facility] Eye [facility], [address] [place], [place] [address] [address], [place], [place], [address], tel:[phone] [facility] No Information Mar-3 0-201 0 Krishnasamy Feng. [address] [place] [address], [facility], [place]. tel:[phone] Referring Provider: Feng Jose, [address] [place] [address], [facility]. tel:[phone] [facility] Eye [facility], [address] [place], [place] [address] [address], [place], [place], [address], [place] tel:[phone] [place] [address] No Information Mar-2 2-201 0 [facility]. [address] [facility], [facility] [address], [place], [place], [address], [place]. tel:[phone] Referring Provider: Feng Jose, [address] [place] [address], [facility]. tel:[phone] parra Provider: Deacon Mooney, [address] [place] [address], [facility]. tel:[phone] 1996 [facility], [address] [place], [place] [address], [place], [place], [address], [place] tel:[phone] [place] [address] No Information Mar-1 6-201 0 Krishnasamy Feng. [address] [place] [address], [facility], [place]. tel:[phone] Referring Provider: Rahat Zimmerman, [address] [place] [address], [facility]. tel:[phone] Family History Family Member Type Diagnosis Age At Onset No Information Payers Payer name Insurance type Covered green party ID Authoriza tion(s) No Information Social History [...]
--- NOTE | ~2025-01-13 | MM_ITS ---
EXAMINATION: MM screening billy BI w carolyn HISTORY: Screening TECHNIQUE: Craniocaudal and mediolateral oblique 3-D tomosynthesis images were obtained and synthetic 2-D images were generated. CAD analysis was submitted and interpreted. COMPARISON: Comparison to multiple prior studies sequentially, with oldest reviewed study dated , 11/24/2017 BREAST PARENCHYMAL COMPOSITION: There are scattered areas of fibroglandular density. FINDINGS: There is no evidence of suspicious mass, calcification, or architectural distortion to suggest malignancy in either breast. IMPRESSION: 1. No mammographic evidence of malignancy. 2. Recommend routine screening mammography in one year. BI-RADS Category 1: Negative Reviewed, dictated and finalized at location B.
== END 2025-01-13 09:12 | disposition home or self-care (01) ==
PROVIDERS: PCP Internal Medicine; Visit Provider Student in an Organized Health Care Education/Training Program
DX: Z12.31 Encounter for screening mammogram for malignant neoplasm of breast (principal)
CPT/HCPCS: 77063; 77067

== ENCOUNTER 2025-02-11 13:23 | Outpatient (CLI) | payer MEDICARE, SELFPAY ==
--- OUTSIDE RECORDS SUMMARY | 2010-03-09 19:00 | XMS_ITS | Continuity of Care Document ---
Author Organization [facility] Address [address] [place] [address] [address] [place] [address] Phone Care Team Providers Care Telephone Operator Name Role Phone [facility], [facility] Unavailable Unavail able Madelyn Mayfield Unavailable Unavailable Procedures Procedure Date SV Plastic Sph [place] To +/- 4 0 Post-op Follow-up Visit Post-op Follow-up Visit Post-op Follow-up Visit Remove Cataract, Insert Lens Eye Exam & Treatment IOLMaster Visual Field Examination(s) Vision Svcs Frames Purchases Progressive Lens, Plastic Tint Photochromatic, Plastic Anti-reflective Coating Eye Exam, New Patient Refraction Advance Directives Directive Yes / No Effective Date File Name No Information Encounters Encounter Description Practice Location Reason(s) For Visit Diagnoses Date Provider Providers Copied on Encounter [facility], [address], [place], [place], [address], [place] tel:[phone] [facility] No Information 0 [facility]. [address] [facility], [address], [place], [place], [address], [place]. tel:[phone] Referring Provider: Celi Lala, [address], [place], [address]. tel:[phone] g Provider: Madelyn Mayfield, [address] [place], [address]. tel:[phone] [facility], [address] [place] [address] [address], [place], [place], [address], tel:[phone] [facility] No Information Oct-2 2-201 0 Rani Munroe [address] , [address], [place], [facility], [place]. tel:[phone] [facility], [address] [place] [address] [address], [place], [place], [address], [place] tel:[phone] [facility] No Information Oct-0 5-201 0 Rani Simmonsn. [address] [facility] , [address], [place], [facility], [place]. tel:[phone] [facility], [address] [place] [address] [address], [place], [place], [address], [place] tel:[phone] [facility] No Information Sep-2 3-201 0 Rani Munroe [address] , [address], [place], [facility], [place]. tel:[phone] [facility], [address] [place] [address] [address], [place], [place], [address], [place] tel:[phone] [facility] No Information Sep-2 2-201 0 Rani Munroe [address] , [address], [place], [facility], [place]. tel:[phone] [facility], [address] [place] [address] [address], [place], [place], [address], [place] tel:[phone] [facility] No Information Sep-1 0-201 0 Rani Munroe [address] , [address], [place], [facility], [place]. tel:[phone] Referring Provider: Celi Lala, [address], [place], [address]. tel:[phone] [facility], [address] [place], [place] [address] [address], [place], [place], [address], tel:[phone] [facility] No Information Mar-3 0-201 0 Krishnasamy Feng. [address] [place] [address], [facility], [place]. tel:[phone] Referring Provider: Feng Jose, [address] [place] [address], [facility] tel:[phone] [facility], [address] [place], [place] [address] [address], [place], [place], [address], [place] tel:[phone] [place] [address] No Information Mar-2 2-201 0 [facility]. [address] [facility], [facility] [address], [place], [place], [address], [place]. tel:[phone] Referring Provider: Feng Jose, [address] [place] [address], [facility] tel:[phone] parra Provider: Deacon Mooney, [address] [place] [address], [facility] tel:[phone] [facility], [address] [place], [place] [address] [address], [place], [place], [address], [place] tel:[phone] [place] [address] No Information Mar-1 6-201 0 Krishnasamy Feng. [address] [place] [address], [facility], [place]. tel:[phone] Referring Provider: Rahat Zimmerman, [address] [place] [address], [facility] tel:[phone] Family History Family Member Type Diagnosis Age At Onset No Information Payers Payer name Insurance type Covered libertarian ID Authoriza tion(s) No Information Social History Type Description Quantity Date Captured Comments Sex Female Smoking Status No Information Chief Complaint And Reason For Visit No Information Reason For Referral Reason For Referral No Information History Of Present Illness Encounter Date Complaint History Of Prese nt Illness No Information Functional Status Date Functional Assessmen t No Information Instructions Date Instruction Additional Infor mation No Information Assessments Type Assessment Date No Information Patient Care Teams Name Effective Dates (start - stop) Status Members No Information
--- NOTE | ~2025-02-11 | CT_ITS ---
EXAMINATION: CT abdomen pelvis w con DATE: 02/11/2025 14:03 INDICATION: Low abdominal pain. Constipation. TECHNIQUE: Computed tomography (CT) of the abdomen and pelvis was performed with 100 mL Omnipaque 350 intravenous contrast. Automated exposure control and iterative reconstruction technique were employed. The dose-length product was 177.54 mGy-cm. COMPARISON: CT abdomen and pelvis 06/23/2023 FINDINGS: The visualized portions of the lung bases demonstrate mild atelectasis. No pleural effusion. The heart size is normal. No pericardial effusion. There is a 14 mm cyst in the liver. The gallbladder, spleen, pancreas, and adrenal glands are normal. There are cysts in the kidneys measuring up to 8 mm on the right. There are no dilated loops of bowel. There is a moderate volume of stool in the colon. Again seen is a 1.6 cm lipoma in the duodenum. The appendix is normal. There are no pathologically enlarged lymph nodes. There is no free intraperitoneal fluid. There is severe lower lumbar spondylosis. IMPRESSION: 1. No etiology for the patient's symptoms. Reviewed, dictated and finalized at location E.
[2025-02-11 13:48] LABS: Estimated Glomerular Filt Rate > 60
--- OUTSIDE RECORDS SUMMARY | 2025-02-11 14:18 | XMS_ITS | Clinical Summary ---
Author Organization [facility] Address [address] [place] [address] Care Team Providers Care Director Loan Name Role Phone Annette Debra MAY Primary Care Provider [phone] Allergies No known active allergies Medications albuterol [...] in partial remission 04/25/2019 Fibromyalgia 04/23/2019 Asthma ([facility]) 04/23/2019 Vitamin D deficiency 04/23/2019 DDD (degenerative disc disease), lumbar 04/23/20 Hyperlipemia 04/23/2019 COPD (chronic obstructive pu lmonary disease) ([facility]) 04/23/2019 Acquired hypothyroidism 04/23/2019 Immunizations Immunization Administration Dates Next Due Influenza Adult (Generic) 02/05/2019 Pneumococcal (Prevnar 13) 04/23/2019 Zoster (Zostavax) 63037 Unt/0.65Ml 04/25/2019 Family History Medical History Relation [...] on file Legal Sex Female 11:28 AM METALSMITH HELPER Gender Identity Not on file Sexual Orientation Not on file Last Filed Vital Signs Vital Sign Reading Time Taken Comments Blood Pressure 176/91 04/23/2019 9:21 AM METALSMITH HELPER Pulse 74 04/23/2019 8:32 AM METALSMITH HELPER Temperature 36.3 C (97.4 F) 04/23/2019 8:32 AM METALSMITH HELPER Respiratory Rate 16 04/23/2019 8:32 AM METALSMITH HELPER Oxygen Saturation 98% 04/23/2019 8:32 AM METALSMITH HELPER Inhaled Oxygen Concentration - - Weight 64.9 kg (143 lb) 04/23/2019 8:32 AM METALSMITH HELPER Height 165.1 cm (5' 5) 04/23/2019 8:32 AM METALSMITH HELPER Body Mass Index 23.8 04/23/2019 8:32 AM METALSMITH HELPER Plan of Treatment Health Maintenance Due Date [...] 12/06/2020 12/06/2018, 11/24/2017, 09/10/2010, Additional history exists Dexa Scan (General) 2024 COVID-19 Vaccine ( season) 2025 Hepatitis C Completed 05/03/2019 Meningococcal B Vaccine [...] HEPATITIS C ANTIBODY Routine 05/03/2019 10:39 AM METALSMITH HELPER MAMMOGRAM GENERIC (SCAN ORDER) Routine 12/06/2018 from Last 3 Months or Most Recently Relevant to Health Maintenance Results * HEPATITIS C ANTIBODY (05/03/2019 10:39 AM METALSMITH HELPER) HEPATITIS C AB NON-REACT LORI NON-REACT LORI [facility] SIGNAL TO CUTOFF 0.03 <1.00 [facility] Comment: HCV antibody was non-reactive. There is no laboratory evidence of HCV infection. In most cases, no further action is required. However, if recent HCV exposure is suspected, a test for HCV RNA (test code 34974) is suggested. For additional information please refer to http://education.Shopcaster/faq/LDB03r4 (This link is being provided for informational/ educational purposes only.) 05/03/2019 10:3 9 AM METALSMITH HELPER 05/03/2019 10:43 AM METALSMITH HELPER Narrative Resulting Agency Comment Performing Organization Information: Site ID: [id number] Name: [facility] Address: [address] [address] Director: Mario Mccarty D.O., MPH us Debra [facility] Final Resul t [facility] * MAMMOGRAM (12/06/2018) Anatomical Region Laterality Modality Other us Documents Scanned SCANNING Final Result from Last 3 Months or Most Recently Relevant to Health Maintenance Insurance [employer] Care Teams Director Loan Relationship Specialty Start Date End Date Debra Bryant APNP [address] [place] [id number] PCP - General NURSE PRACTITIONER 04/23/19
--- OUTSIDE RECORDS SUMMARY | 2025-02-11 14:19 | XMS_ITS | Data Portability ---
Author Organization [place] - [email or web address], Main Office Address [address] [place] [address] Assessment Encounter Date Assessment Date Assessment LastModified [...] she states she would rather take ibuprofen [id number] . We talked about taking 600 mg [...] Modified Time Details Appointments None recorded. Lab CBC w/ auto diff 2024 025 [email or web address] [facility] Out[facility], [address] [place], [address], 5 08:27:01 CMP, serum or plasma [id number] [place] [address] Outpatient Lab, [address] [place], [address], 5 08:27:01 lipid panel, serum [id number] [place] [address] Outpatient Lab, [address] [place], [address], 5 08:27:02 TSH, serum or plasma [id number] [place] [address] Outpatient Lab, [address] [place], [address], 5 08:27:02 T4, free, serum [id number] [place] [address] Outpatient Lab, [address] [place], [address], 5 08:27:02 vitamin D, 25-hydroxy, total, serum [email or web address] [place] [address] Lab, [address] [place] [address], [address], 5 08:27:02 Referral physical therapist referral - please contact patient to schedule 2024 025 CHELA Goddard, [address] [facility], [place], [address], 5 12:42:48 Procedures injection/a spiration joint/bursa (PROC) 2024 025 [email or web address] In-Office Order, Internal Use Only DO Not Attach Compendium DO Not Attach Compendium, Do Not Delete/merge, [id number] 10:30:37 injection/a spiration joint/bursa (PROC) 2024 025 [email or web address] In-Office Order, Internal Use Only DO Not Attach Compendium DO Not Attach Compendium, Do Not Delete/merge, 5 10:30:37 injection/a spiration joint/bursa (PROC) 2024 025 [email or web address] In-Office Order, Internal Use Only DO Not Attach Compendium DO Not Attach Compendium, Do Not Delete/merge, 5 10:31:12 Surgeries None recorded. Imaging XR, elbow 2024 025 [email or web address] [facility] [place], [address], [place], [address], 5 11:03:06 XR, shoulder 2024 025 [email or web address] [facility] [place], [address], [place], [address], 5 11:03:06 Medication Orders bupivacaine HCl 0.5 % (5 mg/mL) injection solution [address], [address] [facility], [place], [address], 5 10:36:10 Kenalog 10 mg/mL suspension for injection [address]25, [address] [facility], [place], [address], 5 10:36:15 bupivacaine HCl 0.5 % (5 mg/mL) injection solution [address]25, [address] [facility], [place], [address], 5 10:36:10 Kenalog 10 mg/mL suspension for injection [address]25, [address] [facility] [address], [place], [address], 10:36:15 bupivacaine HCl 0.5 % (5 mg/mL) injection solution [address], [address] [address], [place], [address], 10:36:10 Kenalog 10 mg/mL suspension for injection [address], [address], [place], [address], 10:36:15 prednisone 10 mg tablets in a dose pack [address], [address] [facility], [place], [address], 10:36:20 Patient TargetsNo targets recorded. Patient Instructions Encounter Date Encounter Id Patient Instructions Last Modified By Organization Details Last Modified Time 06/06/2024 [id number] Follow-up hypertension, hyperlipidemia, chronic pain syndrome, hypothyroidism. [...] context, where substitutions may have occurred. Created: Rahat Zimmerman M.D. 06.06.2024 09:44 AM [email or web address] Not available 06/06/2024 10:44:12 12/10/2024 [id number] Welcome to Medic are evaluation visit. Clinically stable. Follow-up for essential hypertension, hypothyroidism, history of osteopenia as well as asthma. Is clinically doing well otherwise. EKG showed a sinus mechanism with a heartbeat of 52 beats per minute otherwise within normal limits. Is up-to-date on mammography. Is due for Cologuard test but in light of her abdominal discomfort in the left lower abdomen and the left upper abdomen recommend a colonoscopy for further evaluation. Will check blood work as well consisting of CBC, CMP, lipid, thyroid and vitamin-D level. Follow-up in six months. Advised on FDA Recommended Immunizations including but not limited to Influenza, COVID,Tetanus,TDAP, Pneumococcal,RSV and Shingles Additional Orders - Directives - Recommendations 1. Colonoscopy for evaluation as well as left lower quadrant and left upper quadrant abdominal discomfort. Previous history of a Cologuard which was negative Follow Up: 6 Months Approximate Date: 06/08/2025 Portions of record are template driven. When necessary additional context will be provided. Additionally some portions have been created with voice recognition software. Occasional wrong-word or s ound-a-like substitutions may have occurred due to the inherent limitations of voice recognition software. Read the chart carefully and recognize, using context, where substitutions may have occurred. Created: Rahat Zimmerman M.D. 12.10.2024 09:50 AM [email or web address] Not available 12/10/2024 10:50:51 Reason for Referral Physical Therapist Referral for Pain of right shoulder joint please contact patient to schedule Referring Physician: Preet Hong, Orthopedic Surgery, Encounter Date: 07/08/2024 Results Created Date Observation Date Name Description Value Unit Range Abnormal Flag Note LastModifiedBy Organization Detail LastModifiedTime 05/16/1905/17/2024 LIPID PANEL , STAND TEENA cholesterol, total 159 mg/dL <200 normal Not Available [facility] [address] [place], [address], 05/17/2024 23:52:33 05/16/1905/17/2024 LIPID PANEL , STAND TEENA HDL cholesterol 41 mg/dL > or = 50 low Not Available [facility] [address] [facility] [place], [address], 05/17/2024 23:52:33 05/16/1905/17/2024 LIPID PANEL , STAND TEENA triglyceride s 160 mg/dL <150 high Not Available [employer] [place] [address] [place], [address], 05/17/2024 23:52:33 05/16/19 25 05/17/2024 LIPID PANEL , STAND TEENA LDL-choleste rol [...] n, which is a valid ated novel metho d provi ding blaine r accur acy than the [employer] k[employer] equat ion in the estim ation of LDL-C . Izzy eastman SS et al. EDMUNDO. 2013; 310(1 9): 2061- 2068 (http ://ed ucati on.Qu adelineYaupon [employer]. com/f aq/FA Q164) Not Available [employer] [facility] [address] [place], [address], 05/17/2024 23:52:33 05/16/19 25 05/17/2024 LIPID PANEL , STAND TEENA chol/HDLC ratio 3.9 (calc ) <5.0 normal Not Available [employer] [facility] [address] [place], [address], 05/17/2024 23:52:33 05/16/19 25 05/17/2024 LIPID PANEL , STAND TEENA non HDL cholesterol 118 mg/dL _(talha c) <130 normal For patie nts with diabe yumiko plus 1 major ASCVD risk facto r, treat ing to a non-H DL-C goal of <100 mg/dL (LDL- C of <70 mg/dL ) is consi dered a thera peuti c optio n. Not Available [employer] [facility] [address] [place], [address], 05/17/2024 23:52:33 05/16/19 25 05/17/2024 COMPR EHENS LORI METAB OLIC PANEL glucose 93 mg/dL 65-99 normal Fasti ng refer ence inter lisette Not Available [address], [address], 05/17/2024 23:52:35 05/16/19 25 05/17/2024 COMPR EHENS LORI METAB OLIC PANEL urea nitrogen (BUN) 15 mg/dL 7-25 normal Not Available [facility] [address], [address], 05/17/2024 23:52:35 05/16/19 25 05/17/2024 COMPR EHENS LORI METAB OLIC PANEL creatinine 0.85 mg/dL 0.50-1 .05 normal Not Available [address], [address], 05/17/2024 23:52:35 05/16/19 25 05/17/2024 COMPR EHENS LORI METAB OLIC PANEL eGFR 76 mL/mi n/1.7 3m2 > or = 60 normal Not Available [address], [address], 05/17/2024 23:52:35 05/16/19 25 05/17/2024 COMPR EHENS LORI METAB OLIC PANEL BUN/creatini ne ratio SEE NOTE: (calc ) 6-22 Not Repor liban: BUN and Creat inine are withi n refer ence range . Not Available [address], [address], 05/17/2024 23:52:35 05/16/19 25 05/17/2024 COMPR EHENS LORI METAB OLIC PANEL sodium 141 mmol/ L 135-14 6 normal Not Available [address], [address], 05/17/2024 23:52:35 05/16/19 25 05/17/2024 COMPR EHENS LORI METAB OLIC PANEL potassium 4.2 mmol/ L 3.5-5. 3 normal Not Available [address], [address], 05/17/2024 23:52:35 05/16/19 25 05/17/2024 COMPR EHENS LORI METAB OLIC PANEL chloride 105 mmol/ L 98-110 normal Not Available [address], [address], 05/17/2024 23:52:35 05/16/19 25 05/17/2024 COMPR EHENS LORI METAB OLIC PANEL carbon dioxide 29 mmol/ L 20-32 normal Not Available [address], [address], 05/17/2024 23:52:35 05/16/19 25 05/17/2024 COMPR EHENS LORI METAB OLIC PANEL calcium 9.6 mg/dL 8.6-10 .4 normal Not Available [address], [address], 05/17/2024 23:52:35 05/16/19 25 05/17/2024 COMPR EHENS LORI METAB OLIC PANEL protein, total 7.1 g/dL 6.1-8. 1 normal Not Available [address], [address], 05/17/2024 23:52:35 05/16/19 25 05/17/2024 COMPR EHENS LORI METAB OLIC PANEL albumin 4.0 g/dL 3.6-5. 1 normal Not Available [address], [address], 05/17/2024 23:52:35 05/16/19 25 05/17/2024 COMPR EHENS LORI METAB OLIC PANEL globulin 3.1 g/dL_ (calc ) 1.9-3. 7 normal Not Available [address], [address], 05/17/2024 23:52:35 05/16/19 25 05/17/2024 COMPR EHENS LORI METAB OLIC PANEL albumin/glob ulin ratio 1.3 (calc ) 1.0-2. 5 normal Not Available [address], [address], 05/17/2024 23:52:35 05/16/19 25 05/17/2024 COMPR EHENS LORI METAB OLIC PANEL bilirubin, total 0.3 mg/dL 0.2-1. 2 normal Not Available [address], [address], 05/17/2024 23:52:35 05/16/19 25 05/17/2024 COMPR EHENS LORI METAB OLIC PANEL alkaline phosphatase 62 U/L 37-153 normal Not Available [address], [address], 05/17/2024 23:52:35 05/16/19 25 05/17/2024 COMPR EHENS LORI METAB OLIC PANEL AST 16 U/L 10-35 normal Not Available [address], [address], 05/17/2024 23:52:35 05/16/19 25 05/17/2024 COMPR EHENS LORI METAB OLIC PANEL ALT 17 U/L 6-29 normal Not Available [address], [address], 05/17/2024 23:52:35 05/16/19 25 05/17/2024 CBC (INCL UDES DIFF/ PLT) white blood cell count 10.2 thous and/u L 3.8-10 .8 normal Not Available [address], [address], 05/17/2024 23:52:36 05/16/19 25 05/17/2024 CBC (INCL UDES DIFF/ PLT) red blood cell count 4.05 aleta on/uL 3.80-5 .10 normal Not Available [address], [address], 05/17/2024 23:52:36 05/16/19 25 05/17/2024 CBC (INCL UDES DIFF/ PLT) hemoglobin 13.2 g/dL 11.7-1 5.5 normal Not Available [address], [address], 05/17/2024 23:52:36 05/16/19 25 05/17/2024 CBC (INCL UDES DIFF/ PLT) hematocrit 39.8 % 35.0-4 5.0 normal Not Available [address], [address], 05/17/2024 23:52:36 05/16/19 25 05/17/2024 CBC (INCL UDES DIFF/ PLT) MCV 98.3 fL 80.0-1 00.0 normal Not Available [address], [address], 05/17/2024 23:52:36 05/16/19 25 05/17/2024 CBC (INCL UDES DIFF/ PLT) MCH 32.6 pg 27.0-3 3.0 normal Not Available [address], [address], 05/17/2024 23:52:36 05/16/19 25 05/17/2024 CBC (INCL UDES DIFF/ PLT) MCHC 33.2 g/dL 32.0-3 6.0 normal For adult s, a sligh t decre ase in the calcu lated MCHC value (in the range of 30 to 32 g/dL) is most likel y not clini tono signi benigno t; la nena er, it shoul d be inter prete d with cauti on in corre latio n with other red cell marta eters and the patie nt's clini talha condi tion. Not Available [employer] [address], [address], 05/17/2024 23:52:36 05/16/19 25 05/17/2024 CBC (INCL UDES DIFF/ PLT) RDW 12.5 % 11.0-1 5.0 normal Not Available [address], [address], 05/17/2024 23:52:36 05/16/19 25 05/17/2024 CBC (INCL UDES DIFF/ PLT) platelet count 328 thous and/u L 140-40 0 normal Not Available [address], [address], 05/17/2024 23:52:36 05/16/19 25 05/17/2024 CBC (INCL UDES DIFF/ PLT) MPV 12.1 fL 7.5-12 .5 normal Not Available [address], [address], 05/17/2024 23:52:36 05/16/19 25 05/17/2024 CBC (INCL UDES DIFF/ PLT) absolute neutrophils 6314 cells /uL 1500-7 800 normal Not Available [employer] [address], [address], 05/17/2024 23:52:36 05/16/19 25 05/17/2024 CBC (INCL UDES DIFF/ PLT) absolute lymphocytes 2662 cells /uL 850-39 00 normal Not Available [employer] [address], [address], 05/17/2024 23:52:36 05/16/19 25 05/17/2024 CBC (INCL UDES DIFF/ PLT) absolute monocytes 775 cells /uL 200-95 0 normal Not Available [employer] [address], [address], 05/17/2024 23:52:36 05/16/19 25 05/17/2024 CBC (INCL UDES DIFF/ PLT) absolute eosinophils 326 cells /uL 15-500 normal Not Available [facility] [address], [address], 05/17/2024 23:52:36 05/16/19 25 05/17/2024 CBC (INCL UDES DIFF/ PLT) absolute basophils 122 cells /uL 0-200 normal Not Available [facility] [address], [address], 05/17/2024 23:52:36 05/16/19 25 05/17/2024 CBC (INCL UDES DIFF/ PLT) neutrophils 61.9 % normal Not Available [facility] [address], [address], 05/17/2024 23:52:36 05/16/19 25 05/17/2024 CBC (INCL UDES DIFF/ PLT) lymphocytes 26.1 % normal Not Available [facility] [address], [address], 05/17/2024 23:52:36 05/16/19 25 05/17/2024 CBC (INCL UDES DIFF/ PLT) monocytes 7.6 % normal Not Available [facility] [address], [address], 05/17/2024 23:52:36 05/16/1905/17/2024 CBC (INCL UDES DIFF/ PLT) eosinophils 3.2 % normal Not Available [facility] [address], [address], 05/17/2024 23:52:36 05/16/19 25 05/17/2024 CBC (INCL UDES DIFF/ PLT) basophils 1.2 % normal Not Available [facility] [address], [address], 05/17/2024 23:52:36 05/16/19 25 05/17/2024 T4, FREE T4, free 1.2 NG/dL 0.8-1. 8 normal Not Available [employer] [address], [address], 05/17/2024 23:52:37 05/16/19 25 05/17/2024 TSH TSH 0.23 mIU/L 0.40-4 .50 low Not Available [employer] [facility] [address], [address], 05/17/2024 23:52:38 05/16/19 25 05/17/2024 VITAM IN [...] /MS is recom violeta d: order code 06058 (deepti ents >2yrs ). See Note 1 Note 1 For addit ional infor owen naavrro refer to http: //[facility] ramya Burns stDia gnost ics.c om/fa q/FAQ 199 (This link is being provi ded for infor paola menard/ sidra tom purpo ses only. ) Not Available [facility] [address], [address], 05/17/2024 23:52:38 05/16/19 25 05/17/2024 DRUG MONIT OR, BASE PANEL , SCREE N, URINE benzodiazepi ricardo NEGATI VE NG/mL <100 See Note A See Note A Not Available [facility] [place] [address], [place], [address], 05/17/2024 23:52:39 05/16/1905/17/2024 DRUG MONIT OR, BASE PANEL , SCREE N, URINE cocaine metabolite NEGATI VE NG/mL <150 See Note A See Note A Not Available [address] [address] [address], [place], [address], 05/17/2024 23:52:39 05/16/1905/17/2024 DRUG MONIT OR, BASE PANEL , SCREE N, URINE opiates POSITI VE NG/mL <100 abnormal See Note A See Note A Not Available [address] [address] [address], [place], [address], 05/17/2024 23:52:39 05/16/19 25 05/17/2024 DRUG MONIT OR, BASE PANEL , SCREE N, URINE oxycodone NEGATI VE NG/mL <100 See Note A See Note A Not Available [employer] [address] [address] [address], [place], [address], 05/17/2024 23:52:39 05/16/1905/17/2024 DRUG MONIT OR, BASE PANEL , SCREE N, URINE creatinine 210.1 mg/dL > or = 20.0 Not Available [address] [address] [address], [place], [address], 05/17/2024 23:52:39 05/16/1905/17/2024 DRUG MONIT OR, BASE PANEL , SCREE N, URINE pH 5.7 4.5-9. 0 Not Available [address] [address] [address], [place], [address], 05/17/2024 23:52:39 05/16/19 25 05/17/2024 DRUG MONIT OR, BASE PANEL , SCREE N, URINE oxidant NEGATI VE mcg/m L <200 Not Available [place] [address] [place], [address], 05/17/2024 23:52:39 05/16/19 25 05/17/2024 DRUG MONIT ORING TEMPL ATE notes and comments This drug testi ng is for medic al treat ment only. Dawna sis was perfo rmed as non-f orens ic testi ng and these resul ts shoul d be used only by healt hcare provi ders to rende r diagn osis or treat ment, or to monit or progr ess of medic al condi tions . Note A: The resul ts are presu mptiv e; based only on roya carodso ds, and they have not been confi rmed by a defin itive methtata diallo. [facility] Pro[facility] ders needi ng Inter preta tion waqarowen hernandez e conta ct us at 1.877 .40.R XTOX (1.87 7.407 .9869 ) M-F, 8am to 10pm EST Not Available [address] [place], [address], 05/17/2024 23:52:41 01/03/2001/03/2025 LIPID PANEL , STAND TEENA cholesterol, total 160 mg/dL <200 normal Not Available [facility] [address], [address], 01/03/2025 05:21:05 01/03/20 25 01/03/2025 LIPID PANEL , STAND TEENA HDL cholesterol 45 mg/dL > or = 50 low Not Available [facility] [address], [address], 01/03/2025 05:21:05 01/03/20 25 01/03/2025 LIPID PANEL , STAND TEENA triglyceride s 159 mg/dL <150 high Not Available [facility] [address] [place], [address], 01/03/2025 05:21:05 01/03/20 25 01/03/2025 LIPID PANEL , STAND TEENA LDL-choleste rol 89 mg/dL _(talha c) normal Refer ence range : <100 Marquis able range <100 mg/dL for prima ry preve ntion ; <70 mg/dL for patie nts with CHD or diabe tic patie nts with > or = 2 CHD risk facto rs. LDL-C is now calcu lated using the [facility] n-Hop kins calcu sabra n, which is a valid ated novel metho d provi lyn blaine r accur acy than the [employer] k[employer] equat ion in the estim ation of LDL-C . Izzy eastman SS et al. EDMUNDO. 2013; 310(1 9): 2061- 206 (http ://ed ucati on.[employer]. com/f aq/FA Q164) Not Available [employer] [facility] [address] [place], [address], 01/03/2025 05:21:05 01/03/2001/03/2025 LIPID PANEL , STAND TEENA chol/HDLC ratio 3.6 (calc ) <5.0 normal Not Available [employer] [facility] [address] [address] , [place], [address], 01/03/2025 05:21:05 01/03/2001/03/2025 LIPID PANEL , STAND TEENA non HDL cholesterol 115 mg/dL _(talha c) <130 normal For patie nts with diabe yumiko plus 1 major ASCVD risk facto r, treat ing to a non-H DL-C goal of <100 mg/dL (LDL- C of <70 mg/dL ) is consi dered a thera peuti c optio n. Not Available [employer] [facility] [address] [place], [address], 01/03/2025 05:21:05 01/03/2001/03/2025 COMPR EHENS LORI METAB OLIC PANEL glucose 111 mg/dL 65-99 high Fasti ng refer ence inter lisette For someo ne witho ut known diabe yumiko, a gluco se value betwe en 100 and 125 mg/dL is consi stent with predi abete s and shoul d be confi rmed with a follo w-up test. Not Available [address], [address], 01/03/2025 05:21:06 01/03/20 25 01/03/2025 COMPR EHENS LORI METAB OLIC PANEL urea nitrogen (BUN) 18 mg/dL 7-25 normal Not Available [address], [address], 01/03/2025 05:21:06 01/03/20 25 01/03/2025 COMPR EHENS LORI METAB OLIC PANEL creatinine 0.83 mg/dL 0.50-1 .05 normal Not Available [address], [address], 01/03/2025 05:21:06 01/03/20 25 01/03/2025 COMPR EHENS LORI METAB OLIC PANEL eGFR 78 mL/mi n/1.7 3m2 > or = 60 normal Not Available [address], [address], 01/03/2025 05:21:06 01/03/2001/03/2025 COMPR EHENS LORI METAB OLIC PANEL BUN/creatini ne ratio SEE NOTE: (calc ) 6-22 Not Repor liban: BUN and Creat inine are withi n refer ence range . Not Available [address], [address], 01/03/2025 05:21:06 01/03/20 25 01/03/2025 COMPR EHENS LORI METAB OLIC PANEL sodium 140 mmol/ L 135-14 6 normal Not Available [address], [address], 01/03/2025 05:21:06 01/03/20 25 01/03/2025 COMPR EHENS LORI METAB OLIC PANEL potassium 4.4 mmol/ L 3.5-5. 3 normal Not Available [address], [address], 01/03/2025 05:21:06 01/03/20 25 01/03/2025 COMPR EHENS LORI METAB OLIC PANEL chloride 105 mmol/ L 98-110 normal Not Available [address], [address], 01/03/2025 05:21:06 01/03/20 25 01/03/2025 COMPR EHENS LORI METAB OLIC PANEL carbon dioxide 28 mmol/ L 20-32 normal Not Available [address], [address], 01/03/2025 05:21:06 01/03/20 25 01/03/2025 COMPR EHENS LORI METAB OLIC PANEL calcium 9.6 mg/dL 8.6-10 .4 normal Not Available [address], [address], 01/03/2025 05:21:06 01/03/20 25 01/03/2025 COMPR EHENS LORI METAB OLIC PANEL protein, total 6.8 g/dL 6.1-8. 1 normal Not Available [address], [address], 01/03/2025 05:21:06 01/03/20 25 01/03/2025 COMPR EHENS LORI METAB OLIC PANEL albumin 4.3 g/dL 3.6-5. 1 normal Not Available [address], [address], 01/03/2025 05:21:06 01/03/2001/03/2025 COMPR EHENS LORI METAB OLIC PANEL globulin 2.5 g/dL_ (calc ) 1.9-3. 7 normal Not Available [address], [address], 01/03/2025 05:21:06 01/03/20 25 01/03/2025 COMPR EHENS LORI METAB OLIC PANEL albumin/glob ulin ratio 1.7 (calc ) 1.0-2. 5 normal Not Available [address], [address], 01/03/2025 05:21:06 01/03/20 25 01/03/2025 COMPR EHENS LORI METAB OLIC PANEL bilirubin, total 0.3 mg/dL 0.2-1. 2 normal Not Available [address], [address], 01/03/2025 05:21:06 01/03/2001/03/2025 COMPR EHENS LORI METAB OLIC PANEL alkaline phosphatase 73 U/L 37-153 normal Not Available [address], [address], 01/03/2025 05:21:06 01/03/20 25 01/03/2025 COMPR EHENS LORI METAB OLIC PANEL AST 21 U/L 10-35 normal Not Available [address], [address], 01/03/2025 05:21:06 01/03/20 25 01/03/2025 COMPR EHENS LORI METAB OLIC PANEL ALT 20 U/L 6-29 normal Not Available [address], [address], 01/03/2025 05:21:06 01/03/20 25 01/03/2025 CBC (INCL UDES DIFF/ PLT) white blood cell count 10.6 thous and/u L 3.8-10 .8 normal Not Available [address], [address], 01/03/2025 05:21:08 01/03/20 25 01/03/2025 CBC (INCL UDES DIFF/ PLT) red blood cell count 4.15 aleta on/uL 3.80-5 .10 normal Not Available [address], [address], 01/03/2025 05:21:08 01/03/2001/03/2025 CBC (INCL UDES DIFF/ PLT) hemoglobin 13.4 g/dL 11.7-1 5.5 normal Not Available [address], [address], 01/03/2025 05:21:08 01/03/2001/03/2025 CBC (INCL UDES DIFF/ PLT) hematocrit 41.5 % 35.0-4 5.0 normal Not Available [address], [address], 01/03/2025 05:21:08 01/03/2001/03/2025 CBC (INCL UDES DIFF/ PLT) MCV 100.0 fL 80.0-1 00.0 normal Not Available [address], [address], 01/03/2025 05:21:08 01/03/2001/03/2025 CBC (INCL UDES DIFF/ PLT) MCH 32.3 pg 27.0-3 3.0 normal Not Available [address], [address], 01/03/2025 05:21:08 01/03/20 25 01/03/2025 CBC (INCL UDES DIFF/ PLT) MCHC 32.3 g/dL 32.0-3 6.0 normal For adult s, a sligh t decre ase in the calcu lated MCHC value (in the range of 30 to 32 g/dL) is most likel y not clini tono milleri benigno t; la nena er, it shoul d be inter prete d with cauti on in corre latio n with other red cell marta eters and the patie nt's clini talha condi tion. Not Available [address] [place], [address], 01/03/2025 05:21:08 01/03/2001/03/2025 CBC (INCL UDES DIFF/ PLT) RDW 11.8 % 11.0-1 5.0 normal Not Available [address], [address], 01/03/2025 05:21:08 01/03/2001/03/2025 CBC (INCL UDES DIFF/ PLT) platelet count 249 thous and/u L 140-40 0 normal Not Available [address], [address], 01/03/2025 05:21:08 01/03/2001/03/2025 CBC (INCL UDES DIFF/ PLT) MPV 11.3 fL 7.5-12 .5 normal Not Available [address], [address], 01/03/2025 05:21:08 01/03/2001/03/2025 CBC (INCL UDES DIFF/ PLT) absolute neutrophils 5947 cells /uL 1500-7 800 normal Not Available [address], [address], 01/03/2025 05:21:08 01/03/2001/03/2025 CBC (INCL UDES DIFF/ PLT) absolute lymphocytes 3095 cells /uL 850-39 00 normal Not Available [address], [address], 01/03/2025 05:21:08 01/03/2001/03/2025 CBC (INCL UDES DIFF/ PLT) absolute monocytes 943 cells /uL 200-95 0 normal Not Available [address], [address], 01/03/2025 05:21:08 01/03/20 25 01/03/2025 CBC (INCL UDES DIFF/ PLT) absolute eosinophils 519 cells /uL 15-500 high Not Available [address], [address], 01/03/2025 05:21:08 01/03/2001/03/2025 CBC (INCL UDES DIFF/ PLT) absolute basophils 95 cells /uL 0-200 normal Not Available [address], [address], 01/03/2025 05:21:08 01/03/2001/03/2025 CBC (INCL UDES DIFF/ PLT) neutrophils 56.1 % normal Not Available [address], [address], 01/03/2025 05:21:08 01/03/2001/03/2025 CBC (INCL UDES DIFF/ PLT) lymphocytes 29.2 % normal Not Available [address], [address], 01/03/2025 05:21:08 01/03/2001/03/2025 CBC (INCL UDES DIFF/ PLT) monocytes 8.9 % normal Not Available [address] [address], [address], 01/03/2025 05:21:08 01/03/2001/03/2025 CBC (INCL UDES DIFF/ PLT) eosinophils 4.9 % normal Not Available [address], [address], 01/03/2025 05:21:08 01/03/2001/03/2025 CBC (INCL UDES DIFF/ PLT) basophils 0.9 % normal Not Available [address], [address], 01/03/2025 05:21:08 01/03/2001/03/2025 T4, FREE T4, free 1.3 NG/dL 0.8-1. 8 normal Not Available [facility] [address] [place], [address], 01/03/2025 05:21:09 01/03/2001/03/2025 TSH TSH 0.05 mIU/L 0.40-4 .50 low Not Available [facility] [address] [place], [address], 01/03/2025 05:21:10 01/03/2001/03/2025 VITAM IN D,25- OH,TO MITCHELL,I A vitamin D,25-oh,tota l,ia 45 NG/mL 30-100 normal Vitam in D Statu [...] /MS is recom violeta d: order code 25243 (deepti ents >2yrs ). See Note 1 Note 1 For addit ional infor owen navarro refer to http: //[facility] Irwin[facility] gnost ics.c om/fa q/FAQ 199 (This link is being provi ded for infor paola menard/ sidra tom purpo ses only. ) Not Available [facility] [address] [place], [address], 01/03/2025 05:21:11 07/09/19 25 XR, elbow No observ ation record ed. [email or web address] [facility] [place] [address], [place], [address], 07/08/2024 10:37:40 07/09/19 25 XR, shoul cookie No observ ation record ed. [email or web address] [facility] [address] [facility] [address], [place], [address], 07/08/2024 10:40:05 11/07/19 25 11/05/2024 bone densi ty No observ ation record ed. [email or web address] [place], [address], 11/06/2024 16:41:40 01/04/20 25 01/03/2025 elect rocar diogr am No observ ation record ed. [email or web address] Not Available 2024 11:25:25 01/14/20 25 01/13/2025 MAMMO , scree mathew, bilat eral No observ ation record ed. [email or web address] [facility] [address] [facility] [address], [place], [address], 01/13/2025 14:29:06 Result Notes None recorded. Problems Name Problem SNOMED Code Status Onset Date Resolution Date Notes Provider Name and Address Organization Details Recorded Time Asthma 318698109 Active Not Available [facility] 3 14:30:49 Sciatica 37866828 Active Not Available [facility] 3 14:30:49 Fibromyosi tis 48834952 Active Not Available [facility] 3 14:30:49 Dyspnea 208562775 Active Not Available [facility] 3 14:30:49 Pure hyperchole sterolemia 469743858 Active Not Available [facility] 3 14:30:49 Chest pain 89344251 Active Not Available [facility] 3 14:30:49 Depressive disorder 10734882 Active Not Available [facility] 3 14:30:49 Chronic sinusitis 64891050 Active Not Available [facility] 3 14:30:49 Hypothyroi dism 45977626 Active Not Available [facility] 3 14:30:49 Cough 67000482 Active Not Available [facility] 3 14:30:49 Carpal tunnel syndrome 74192586 Active Not Available [facility] 3 14:30:49 Allergic rhinitis 04495005 Active Not Available [facility] 3 14:30:49 Chronic pain syndrome 691703416 Active 2017 Not Available [facility] 3 14:30:49 Essential hypertensi on 07327964 Active 2019 Not Available [facility] 3 14:30:49 Vitamin D deficiency 76367529 Active 2021 Not Available [facility] 3 14:30:49 Muscle pain 84488268 Active 2021 Not Available [facility] 3 14:30:49 Acute sinusitis 99077993 Active 2021 Not Available [facility] 3 14:30:49 Fibromyalg ia 934734294 Active 2022 Not Available [facility] 3 14:30:49 Pain in right foot 0901593209914 07 Active 2022 Not Available [facility] 3 14:30:49 Low back strain 343980787 Active 2022 Rahat Zimmerman MD [address], [address], [place], [address] , [place] [facility] 3 16:46:45 Left flank pain 459691584 Active 2023 Rahat Zimmerman MD [address], [place], [address] , [place] [facility] 4 15:05:04 Low back pain 175321771 Active 2023 Renetta Luther CMA null, [place] [facility] 4 10:36:55 Pain of multiple joints 52613659 Active 2023 Rahat Zimmerman MD [address], [place], [address] , [place] [facility] 4 10:45:04 Lower abdominal pain 05689642 Active 2023 Latonya [place] null, [place] [facility] 5 15:20:44 Acute bronchitis 50212758 Active 2023 Rahat Zimmerman MD [address], [address], [place], [address] , [place] [facility] 4 13:11:58 Pain in right arm 791285350 Active 2024 Renetta Luther CONTRACTING SUPPORT SPECIALIST null, [place] [facility] 5 14:34:36 Pain of right wrist 6243784400105 00 Active 2024 Carolynn Roque TRANSITIONS MANAGER null, [place] [facility] 5 10:04:45 Pain of right elbow joint 3180839242428 9109 Active 2024 Carolynn Roque TRANSITIONS MANAGER null, [place] [facility] 5 10:19:19 Pain of right shoulder joint 3540156591849 9100 Active 2024 Carolynn Roque TRANSITIONS MANAGER null, [place] [facility] 5 10:19:47 Tendinitis of right rotator cuff 3419214524619 9104 Active 2024 EDYTA Mills [address], [address], [place], [address] , [place] [facility] 5 10:40:23 Partial thickness rotator cuff tear 772926337 Active 2024 EDYTA Mills [address], [place], [address] , [place] [facility] 5 10:41:06 Right lateral elbow tendinopat hy 1299902584409 07 Active 2024 Carolynn Roque TRANSITIONS MANAGER null, [place] [facility] 5 10:26:42 Radial tunnel syndrome 593180156 Active 2024 Carolynn Roque TRANSITIONS MANAGER null, [place] [facility] 5 10:29:17 Osteopenia 491702764 Active 2024 Rahat Zimmerman MD [address], [address], [place], [address] , [facility] [email or web address] 10:44:25 Problem Notes None recorded. Procedures Surgical History Date Name Laterality Status Provider Name and Address Organization Details Recorded Time partial hysterectomy completed Carolynn Roque CNA [place] [employer] [facility] [email or web address] 07/08/2024 10:03:31 Bladder completed Carolynn Roque CNA [facility] [employer] 07/08/2024 10:03:59 Imaging Results None recorded. Procedure Notes None recorded. Medical Equipment None Reported. Allergies Allergen ID Allergen Name Allergen Category Reaction Reaction Severity Criticality Documentation Date Start Date Code Code System Note Provider Name and Address Organization Details Recorded Time 04160 Zocor medicatio n myalgias (muscle pain) Not available Not available 07/06/202219640 3 RxNorm Not Available [facility] 06:51:35 Medications Name Sig Start Date Stop [...] day by oral route for 10 days. 12/10 completed Not Available Not Available Not Available atorvastati n 40 mg tablet Take 1 [...] solution Take 10 mg by injection route. 12/10 completed Not Available Not Available Not Available prednisone 20 mg tablet One TID for [...] mouth once a day for 1 day 12/10 completed Not Available Not Available Not Available Tessalon Perles 100 mg capsule Take 1 capsule 3 times a day by oral route. active Not Available Not Available No t Available levothyroxi ne 88 mcg tablet Take 1 tablet by mouth once daily 2024 active Not Available Not Available Not Avai lable Kenalog 10 mg/mL suspension for injection Take 10 mg by injection route. 12/10 completed [facility]: [phone] [phone] Not Available Not Available [...] QNASL 80 mcg/actuati on nasal aerosol spray [place] 2 sprays every day by intranasa l [...] 100 mcg-62.5 mcg-25 mcg powder for inhalation INHALE 1 PUFF ONCE DAILY 2024 active Not Available Not Available [...] in Arterial blood by Pulse oximetry Systolic And Diastolic Provider Name and Address Organization Details Last Updated DateTime 165.1 cm 21 kg/m2 09229.6 4 g 82 /min 97 [degF] 97 % 97 % 138/60 mm[Hg] Nancy Christianson [employer] 10:33:03 Date Recorded Body height Body mass index (BMI) Body weight Provider Name and Address Organization Details Last Updated DateTime 07/08/2024 162.56 cm 20.1 kg/m2 18289.31 g [employer] [place] [employer] 07/08/2024 10:01:49 Date Recorded Body height Body mass index (BMI) Body weight Provider Name and Address Organization Details Last Updated DateTime 08/19/2024 162.56 cm 20.6 kg/m2 95481.08 g [employer] 08/19/2024 10:16:22 Date Recorded Body height Body mass index (BMI) Body weight Provider Name and Address Organization Details Last Updated DateTime 10/21/2024 162.56 cm 20.4 kg/m2 27095.49 g [employer] [place] [employer] [facility] 10/21/2024 09:57:49 Date Recorded Body height Body mass index (BMI) Body weight Heart rate Body temperature Oxygen saturation Oxygen saturation in Arterial blood by Pulse oximetry Systolic And Diastolic Provider Name and Address Organization Details Last Updated DateTime 165.1 cm 19.9 kg/m2 22460.2 9 g 61 /min 97 [degF] 97 % 97 % 128/60 mm[Hg] Nancy Luelder [facility] [email or web address] 10:35:53 Social History Question Answer Notes LastModified by D and K interprisesizAGNITiO ion Details LastModified Time Tobacco Smoking Status Current Every Day Smoker RICK Smith [facility] [employer] [facility] 07/08/2024 10:03:11 In The 14 Days Before Symptom Onset, Have You Had Close Contact With A Laboratory-confirm ed COVID-19 While That Case Was Ill? No [id number] Information not available 07/06/2022 In The 14 Days Before Symptom Onset, Have You Had Close Contact With A Person Who Is Under Investigation For COVID-19 While That Person Was Ill? No [id number] Information not available 07/06/2022 Have You Recently Traveled Abroad? No [id number] Information not available 07/06/2022 Sex: Unknown [...] Brother one in good health Sister from [facility] Medical History Condition Response NERVE DISEASE N [...] HAVE YOU BEEN HOSPITALIZED OR SEEN IN [facility] IN THE PAST YEAR ? [...] SARS-COV-2 (COVID-19) vaccine, UNSPECIFIED 3 completed Nancy escobedo [facility] 03/24/2023 10:26:02 influenza, unspecified formulation 3 completed Nancy escobedo [employer] [facility] [email or web address] 03/24/2023 10:26:14 Influenza, split virus, trivalent, preservative 4 completed Not Available [facility] 12/10/2024 10:35:07 Influenza, split virus, quadrivalent, PF 7 completed Not Available [facility] 12/10/2024 10:35:07 influenza, unspecified formulation 9 completed Not Available [facility] 12/10/2024 10:35:07 Pneumococcal conjugate PCV 13 9 completed Not Available [facility] 12/10/2024 10:35:07 zoster recombinant 9 completed Not Available [facility] 12/10/2024 10:35:07 zoster recombinant 0 completed Not Available [facility] 12/10/2024 10:35:07 Influenza, MDCK, trivalent, PF 4 completed Not Available [facility] 12/10/2024 10:35:07 COVID-19, mRNA, LNP-S, PF, 50 mcg/0.5 mL 4 completed Not Available [facility] 12/10/2024 10:35:07 Influenza, split virus, trivalent, preservative 3 completed Not Available [facility] 07/06/2022 06:51:27 COVID-19, mRNA, LNP-S, bivalent, PF, 30 mcg/0.3 mL dose 2 completed Not Available [facility] 07/06/2022 06:51:27 Influenza, split virus, quadrivalent, preservative 2 completed Not Available [facility] 07/06/2022 06:51:27 COVID-19, mRNA, LNP-S, PF, 30 mcg/0.3 mL dose 2 completed Not Available [facility] 07/06/2022 06:51:27 COVID-19, mRNA, LNP-S, PF, 30 mcg/0.3 mL dose 1 completed Not Available [facility] 07/06/2022 06:51:27 SARS-COV-2 (COVID-19) vaccine, UNSPECIFIED 1 completed Not Available [facility] 07/06/2022 06:51:27 SARS-COV-2 (COVID-19) vaccine, UNSPECIFIED 1 completed Not Available [facility] 07/06/2022 06:51:27 Influenza, split virus, quadrivalent, preservative 9 completed Not Available [facility] 07/06/2022 06:51:27 Influenza, split virus, quadrivalent, PF 8 completed Not Available [facility] 07/06/2022 06:51:27 Influenza, split virus, quadrivalent, preservative 5 completed Not Available [facility] 07/06/2022 06:51:27 Influenza, split virus, quadrivalent, PF 1 completed Not Available [facility] 07/06/2022 06:51:27 Influenza, split virus, quadrivalent, PF 0 completed Not Available [facility] 07/06/2022 06:51:28 Influenza, split virus, quadrivalent, PF 6 completed Not Available [facility] 07/06/2022 06:51:28 Past Encounters Encounter ID Performer Location Encounter Start Date Encounter Closed Date Diagnosis/Indication Diagnosis SNOMED-CT Code Diagnosis ICD10 Code Diagnosis IMO Codes Diagnosis Note [id number] Rahat Zimmerman MD [facility] Internal Med [place] [address] [place] [address] y , [place] [address] 11/06/2020 00:00:00 11/06/2020 10:41:06 [id number] Rahat Zimmerman MD [facility] Internal [facility] [place] [address] [place] [address] [place] [address] 03/12/2021 00:00:00 03/12/2021 10:49:38 [id number] Rahat Zimmerman MD [facility] Internal Med [place] [address] [place] [address] [place] [address] 09/17/2021 00:00:00 09/17/2021 10:38:00 [id number] Rahat Zimmerman MD [facility] Internal Med [place] [address] [place] [address] [place] [address] 03/25/2022 00:00:00 03/25/2022 10:50:18 [id number] Rahat Zimmerman MD [facility] Internal Med [place] [address] [place] [address] [place] [address] 09/23/2022 10:26:26 09/23/2022 11:14:36 Adult health examination 239085389 Z00.00 Depression screening 171 969727 Z13.31 Chronic pain syndrome 37 7493519 G89.4 Essential hypertension 45783297 I10 Hypothyroidism 56895483 E03.9 Pure hypercholesterolemia 108105708 E78.00 Vitamin D deficiency 347 31042 E55.9 [id number] Rahat Zimmerman MD [facility] Internal Med [facility] [address] [place] [address] [place] [address] 03/24/2023 10:24:12 03/24/2023 10:40:08 Chronic pain syndrome 155029122 G89.4 Essential hypertension 57651026 I10 Hypothyroidism 30440052 E03.9 Pure hypercholesterolemia 404612682 E78.00 [id number] Rahat Zimmerman MD [facility] Internal Med [facility] [address] [facility] [address] [place] [address] 06/19/2023 14:31:56 06/19/2023 15:16:19 Left flank pain 674746843 R10.9 [id number] Rahat Zimmerman MD [facility] Internal Med [facility] [address] [place] [address] [place] [address] 09/28/2023 10:12:20 09/28/2023 10:54:40 Chronic pain syndrome 196284071 G89.4 Essential hypertension 97039212 I10 Pure hypercholesterolemia 657688019 E78.00 [id number] Rahat Zimmerman MD [facility] Internal Med [address] [place] [address] 01/25/2024 10:25:57 01/25/2024 10:49:32 Chronic pain syndrome 524693576 G89.4 Essential hypertension 13933778 I10 Hypothyroidism 76630674 E03.9 Pure hypercholesterolemia 890950897 E78.00 Asthma 406117258 J45.90 9 Long-term current use of opiate analgesic drug 1756183161 30367 Z79.891 Vitamin D deficiency 347 65123 E55.9 [id number] Rahat Zimmerman MD [facility] Primary Care [facility] [address] [facility] [address] [place] [address] 06/06/2024 10:14:55 06/06/2024 10:56:15 Chronic pain syndrome 381610505 G89.4 Essential hypertension 56837369 I10 Hypothyroidism 37830691 E03.9 Pure hypercholesterolemia 943680004 E78.00 [id number] Marbin Lewis MD [facility] [place] [address] [place] [address] 07/08/2024 09:48:45 07/08/2024 10:48:36 Pain of right elbow joint 6915003060 1073794 M25.521 Pain of ri ght shoulder joint 0295598167 4926546 M25.511 Tendinitis of right rotator cuff 1252617183 1593763 M67.813 Partial th ickness rotator cuff tear 932455366 M75.648 [id number] Marbin Lewis MD [facility] [place] [address] [place] [address] 08/19/2024 10:11:47 08/19/2024 10:50:46 Pain of right shoulder joint 9557583014 0787313 M25.511 Pain of ri ght elbow joint 2352800256 6934400 M25.521 Tendinitis of right rotator cuff 0261534691 1750389 M67.813 Partial th ickness rotator cuff tear 336438101 M75.101 Right late ral elbow tendinopathy 5904343464 94406 M77.11 Radial casi stevie syndrome 660804580 G56.31 [id number] Marbin Lweis MD [facility] [place] [address] [place] [address] 10/21/2024 09:49:48 10/21/2024 10:34:11 Pain of right shoulder joint 7954257411 4118076 M25.511 Pain of ri ght elbow joint 0970484202 4730106 M25.521 Tendinitis of right rotator cuff 8338975919 3587294 M67.813 Partial th ickness rotator cuff tear 270268050 M75.101 Radial casi stevie syndrome 367228617 G56.31 Right late ral elbow tendinopathy 1903431575 29179 M77.11 [id number] Rahat Zimmerman MD [facility] Internal Med [facility] [address] [facility], [facility] [address] [place] [address] 12/10/2024 10:34:26 12/10/2024 10:56:56 General examination of patient 757829786 Z00.00 22591361 Essential hypertension 20067405 I10 Hypothyroidism 40369542 E03.9 Osteopenia 631949765 M85 .80 [id number] Asthma 291101019 J45.90 9 Health Concerns Section Related Observation LastModified by Organization Detai ls LastModified Time None Recorded Concern Status LastModified by Organization Details LastModified Time None Recorded Advance Directives Directive None Recorded Payers Insurance Date Sequence Insurance Name Policy Number Policy Todd Covered Member ID Todd Member ID Guarantor Name 06/06/2024 1 [employer] (PPO) [id number] Esteban Ruvalcaba [id number] Maribel Ruvalcaba 12/13/2024 1 [facility] (MEDICARE REPLACEMENT/A DVANTAGE - HMO) [id number] Maribel Ruvalcaba [id number] Maribel Ruvalcaba Notes Date Note Type Note Provider Name and Address Organization Details Recorded Time 025 text/ht ml Patient Name: Maribel NathancamrynDate Of Service: May ( 06.06.2024 ): 1960 [...] Systemic Symptoms:none Medication Reconciliation: from medication list. [id number]: CT scan of the abdomen and pelvis [...] or has seen in the past a Solar Energy Consultant And Designer: Intermittently .Pain - Enjoyment of Life - [...] machinery and have advised against this. Last STRATEGIC ALLIANCES MANAGER: 09/08/2023Last Drug Screen: 05/16/2024Last Pain Contract! 01/25/2024ctive [...] COVID PFIZER(X) 2022- COVID BOOSTER MODERNA Surgical [id number] Right Cataract Preventative Testing( ) 05/16/2024 Albumin 4.0 G/DL N( ) 12/20/2023 Mammogram 12/19/2025( ) 10/07/2021 Cologuard 10/07/2024(X) 08/30/2010 DEXA Scan 08/30/2012 Social HistorySmoked one pack daily for approximately 15 years. 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 Family HistoryMother 69 HTN/DMFather 69 Parkinsonism/HTNBrother one in good healthSister from ALS TEST RESULT RANGE UNITSCBC (INCLUDES DIFF/PLT) Date: 05/16/2024WHITE BLOOD CELL COUNT 10.2 3.8-10.8 THOUSAND/ULHEMOGLOBIN 13.2 11.7-15.5 G/DLHEMATOCRIT 39.8 35.0-45.0 %PLATELET COUNT 328 140-400 THOUSAND/ULCOMPREHENSIVE METABOLIC PANEL Date: 05/16/2024SODIUM 141 135-146 MMOL/LPOTASSIUM 4.2 3.5-5.3 MMOL/LGLUCOSE 93 65-99 MG/DLUREA NITROGEN (BUN) 15 7-25 MG/DLCREATININE 0.85 0.50-1.05 MG/DLEGFR 76 > OR = 60 ML/MIN/1.08X3KZUVVGJVF, TOTAL 0.3 0.2-1.2 MG/DLALKALINE PHOSPHATASE 62 37-153 U/LAST 16 10-35 U/LALT 17 6-29 U/LLIPID PANEL, STANDARD Date: 5CHOLESTEROL, TOTAL 159 <200 MG/DLHDL CHOLESTEROL 41 > OR = 50 MG/DLTRIGLYCERIDES 160 <150 MG/DLLDL-CHOLESTEROL 92 MG/DL (CALC)T4, FREE Date: 05/16/2024T4, FREE 1.2 0.8-1.8 NG/DLTSH Date: 05/16/2024TSH 0.23 0.40-4.50 MIU/LVITAMIN D,25-OH,TOTAL,IA Date: 05/16/2024VITAMIN D,25-OH,TOTAL,IA 38 30-100 NG/ML Rahat Zimmerman MD [address] [facility] [address], [place], [address], [place] [facility] 06/06/2024 10:44:28 025 text/ht ml The patient is a 64-year-old female who [...] today with the patient. EDYTA Mills [address], [place], [address], [employer] 07/08/2024 10:42:24 025 text/ht ml Patient returns for recheck of her right [...] the right elbow. EDYTA Mills [address], [place], [address], [employer] 08/19/2024 10:49:14 025 text/ht ml The patient returns for recheck of her right elbow. She [...] months status post treatment. EDYTA Mills [address] [facility], [facility] [address], [place], [address], [place] [facility] [place] [employer] 10/21/2024 10:18:10 025 text/ht ml Patient Name: Maribel RuvalcabaDate Of Service: Monday ( 12.10.2024 ): 1960 Age: 64 There has been approximately a 6.5 lb weight loss since 06/06/2024. This represents approximately a 5.2% change in weight. Weight change attributable to lifestyle changes. Vital Signs:Blood Pressure: Sitting Rt. Arm 128/60Pulse: Sitting 61 /min and RegularRespiratory Rate: 16Height 65 in or 1.7 mWeight 119.5 lb or 54.2 kgBMI 19.9Temperature: 97 F or 36.1 CPulse Oximetry: 97 % at rest on no oxygen Chief Complaint: Addressed in HPI Problems or conditions discussed in the HPI were the only ones reviewed during the encounter.Only social and family history addressed in the HPI were reviewed during this encounter. Attendants(s) + NoneConstitutional and Systemic Symptoms:none Medication Reconciliation: from medication list. [id number]: CT scan of the abdomen and pelvis [...] noted. Does not appear to be surgical. Consider pain management possible injections History of Present Illness Reviewed the findings of the preventative health visit. Addressed all areas with the patient, patient's family or caregivers. Preventative examinations and testing immunizations - vaccinations, colonic neoplasm screening and mammograms all reviewed and ordered where patient was amenable to the recommendations. Cognitive function see HPI but demonstrated no overall change in cognitive status . Depression addressed and where necessary medications were adjusted or instituted. End of life and living will briefly discussed with patient and where these can be filled out and legally executed. Other blood and imaging studies were ordered if considered necessary. Other recommendations may be found in the encounter note. #1. Essential Hypertension: Stage: Stage I Interval Neurological Complaints no headaches. No shortness of breath, orthopnea or cardiovascular symptoms. No other symptoms related to end organ damage. Pressure has been under excellent control. Currently normal. No other end organ symptoms or findings. Therapy reviewed regarding management of hypertension and includes salt restriction and Lisinopril. #2. Hx of hypothyroidism currently stable. Heat intolerance: no Fatigue: no Weight gain: no Difficulty concentrating: no Muscle Symptoms: none Skin Texture: normal Skin Color: normal Currently taking synthroid. #3. Hx of asthma. Daily medications: Albuterol Sulfate Hfa and Trelegy Ellipta. Uses bronchodilators several times per week. Night time exacerbations: 3-4 times monthly There has been no cough, congestion, or sputum production. No changes in exercise tolerance. Denies any fever or chills. Tolerating the medications without problems. The current status could be classified as mild persistent asthma. Using nebulizer Treatments: Yes.#4. Chronic pain syndrome clinically stable currently taking the [place] at fairly low dosages. There has been no change in the need for increasing dosages. Has complained of some more in the way of generalized pain. Recommended that she try Advil or Aleve [id number] for this. There is no evidence any significant inflammatory changes. Has complaining some pain and discomfort in the hands and may have some early [place] nodes in the fingers. Wellness Evaluation PHQ-2 Score Last Two Weeks Last Two Weeks: 0: Not at all 1: Several Days 2: More than half 3: Almost Every day #1. Little interest or pleasure in doing things: Not At All :Score 0#2. Feeling down, depressed, or hopeless: Not At All :Score 0Score 0FAST Stage: 1 No functional decline Basic ADLS AmbulationNormalGroomingGeneral Personal Hygiene NormalToiletrySelf SufficientDressingDresses Without AssistanceEatingSelf Sufficient Instrumental ADLS Managing Finances YesManaging Health YesShopping YesPreparing Meals YesUsing Technology YesHouse Work YesTaking Care of Pets YesTaking Care Children YesTransportation Yes Additional Topics Advanced DirectivesDeclinedLiving WillDeclinedDiscussedSmokingCode StatusFull Code Additional Comments Topics listed or those only pertinent to the patient or care givers. Mini Mental Status Exam OrientationYear 1Season 1Month 1Date 1Day 1Score: 5 LocationCountry 1County 1City 1Facility 1Room 1Score: 5 RegistrationHouse 1Car 1Airplane 1Score: 3 AttentionD 1L 1R 1O 1W 1Score: 5 RecallHouse 1Car 1Airplane 0Score: 2 LanguageWatch 1Pencil 1Score: 2 RepetitionNo ifs, ands or buts 1Score: 1 SentenceWrite a Sentence 1Score: 1 ReadingClose Eyes 1Score: 1 PentagonsCopy Design 0Score: 0 CommandHand 1Fold In Half 1Put Down 1Score: 3 Total Test Score: 28 /30 Normal Possible Functional ImpairmentActivities of Daily Living: Probably NormalCommunication: Probably NormalMemory: Probably Normal Social and Physical Activities Drinking History: NoneExercise 20 Minutes per Week: Yes, most of the timeDifficulty Driving Car: NoOther Problems:Smoking HistoryQuit SmokingCannabis HistoryDoes Not Use Additional Comments Generalized pain involving the lower back as well as multiple joint groups. No associated synovial swelling or any signs of any inflammatory arthritis. End Of Wellness Section Active Medication ListIbuprofen 800 MG (TABLET - [...] Drug Reactions ReviewedZocor Myalgia Vaccination and Immunization(X) 2023-02 INFLUENZA( ) 2019- SHINGRIX( ) 2020- COVID PFIZER(X) 2023-02 COVID BOOSTER MODERNAImmunizations and Vaccinations Discussed and Implemented if feasible In the Office. Else referred to pharmacies. Surgical [id number] Right Cataract Preventative Testing( ) 11/05/2024 DEXA Scan 11/05/2026( ) 05/16/2024 Albumin 4.0 G/DL N( ) 12/20/2023 Mammogram 12/19/2025(X) 10/07/2021 Cologuard 10/07/2024Preventative Testing Discussed with Patient and Attendants Social HistorySmoked one pack daily for approximately 15 years. 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
== END 2025-02-11 13:24 | disposition home or self-care (01) ==
PROVIDERS: PCP Internal Medicine; Visit Provider Nurse Practitioner
DX: K58.1 Irritable bowel syndrome with constipation (principal); R10.30 Lower abdominal pain, unspecified; M54.50 Low back pain, unspecified
CPT/HCPCS: 74177; Q9967

== ENCOUNTER 2025-02-13 01:28 | Day surgery (SDC) | payer MEDICARE, SELFPAY ==
[2025-02-13 09:38] VITALS: BP 134/56; PULSE 69; RESP 18; TEMP 36.8; O2SAT 100
[2025-02-13] MEDS: LACTATED RINGERS 1,000 ML 150 ML IV CONT (09:52)
--- NOTE | 2025-02-13 10:12 | WPDANESEPPF ---
Anes - Initial Pre Proc Eval Procedure: Operation Date: 02/13/25 11:00 Proposed Procedures p Diagnostic Colonoscopy - Hammad Sanchez MD Date/Time: 02/13/25 10:12 Surgeon: Hammad Sanchez MD Pre Op Diagnosis: Irritable bowel syndrome with constipation Patient Data Age: 64 Gender: F Height: 1.65 m Weight: 53 kg Last Vital Signs Temp 98.3 F 02/13/25 09:38 Pulse 69 02/13/25 09:38 Resp 18 02/13/25 09:38 BP 134/56 L 02/13/25 09:38 Pulse Ox 100 02/13/25 09:38 O2 Del Method Room Air 02/13/25 09:38 Allergies Allergy/AdvReac Type Severity Reaction Status Date / Time No Known Allergies Allergy Verified 02/13/25 09:37 Home Medications ?Medication ?Instructions ?Recorded ?Confirmed ?Type albuterol sulfate 90 mcg/actuation 1 inh inhalation Q8H PRN shortness 12/31/24 02/06/25 History aerosol inhaler of breath or wheezing fluticasone fur. 100 mcg-umeclid 1 inh inhalation Q24H 12/31/24 02/06/25 History 62.5 mcg-vilant 25 mcg inhalat.powder (Trelegy Ellipta) hydrocodone 10 mg-acetaminophen 2 tablet PO Q12H 12/31/24 02/06/25 History 325 mg tablet levothyroxine 88 mcg tablet 88 mcg PO DAILY 12/31/24 02/06/25 History lisinopril 10 mg tablet 10 mg PO DAILY 12/31/24 02/06/25 History rosuvastatin 20 mg tablet 20 mg PO DAILY 12/31/24 02/06/25 History venlafaxine 150 mg 150 mg PO DAILY 12/31/24 02/06/25 History capsule,extended release 24 hr estradiol 1 mg tablet 1 mg PO DAILY #90 tabs 01/01/25 02/06/25 Rx ondansetron 4 mg disintegrating 4 mg PO Q8H PRN nausea and 02/03/25 02/06/25 Rx tablet vomiting #5 tabs vibegron 75 mg tablet (Gemtesa) 75 mg PO DAILY 02/03/25 02/06/25 History Patient hx anesthesia problems: none Family hx anesthesia problems: none Results Review: All pre-operative results and documents have been reviewed as part of the pre-operative evaluation. [facility] Past Medical History Medical History Thyroid disorder COPD (chronic obstructive pulmonary disease) Asthma Arthritis Surgical History Surgical History History of partial hysterectomy History of bladder surgery Family History Family History Father Family history of Alzheimer's disease Mother Family history of congestive heart failure Sibling Hypertension Other Cerebrovascular accident Diabetes mellitus Family history of Parkinson's disease Family history of allergic disorder Social History Social History (Updated 01/01/25 @ 10:01 by Neyda Simons CMA) Smoking status: Former smoker Smoking end date: 05/08/99 Alcohol intake: never Substance use: never Substance use type: does not use Current Housing: Decline to Answer Concerned About Future Housing: Decline to Answer Difficulty Paying Gas/Electric Bills: Decline to Answer Difficulty Paying for Meds: Decline to Answer Currently Unemployed: Decline to Answer Education: Decline to Answer Difficulty w/ Childcare or Family Care: Decline to Answer Living arrangements: with family Additional living arrangements comments: with sp Occupation/Education: retired Gender identity (if verbalized by the patient): Female Sexual Orientation (if Verbalized by the Patient): Straight or Heterosexual Anes - Eval Final PreProcedure Day of Procedure 02/13/25 10:12 Patient weight: normal Lungs: normal air movement Airway: Mallampati scale class II and special considerations (Edentulous. ) Neurological: alert and oriented Last oral intake: >/= 8 hours ASA classification: II Emergent: no Anesthetic plan: proceed Anesthesia type and monitoring: general GIVS and standard monitoring Results Review: All pre-operative results and documents have been reviewed as part of the pre-operative evaluation. HTN, hyperlipidemia, hypothyroidism, smoker approx 4 cigs/day, none this am. Active w bike riding, no cp or sob. Informed Consent: The patient's anesthetic plan and its attendant risks and benefits were discussed with the patient/family/POA. Questions were solicited and answers provided to the satisfaction of the patient/family/POA.
--- NOTE | 2025-02-13 10:25 | WPDHPUPDATE1 ---
History and Physical Update Update Date/Time: 02/13/25 10:25 History and Physical has been reviewed, including an updated exam of the patient. There are NO changes in the patient's condition. Risks, benefits, and alternatives have been discussed and questions answered. Patient agrees to proceed with procedure.
--- NOTE | 2025-02-13 10:42 | S_PTH ---
PATIENT: Maribel Ruvalcaba LOC: [facility] Ta#:[id number] AGE/SX: 64/F ROOM: RE02/13/[address]: Hammad Sanchez MD : 1960 BED: DIS: 02/13/2025 SPEC #: [id number] RECD: 02/13/25 11:33 STATUS: SHANICE RELisseth #: [id number] TRACE: 02/13/25 10:[address]: Hammad Sanchez DEPT: [facility] Surgical RECD BY: Betsey Escalante ENTERED: 02/13/25 11:33 SP TYPE: Surgical OTHR DR: Rahat Zimmerman, Tissues: A - Colon Polypectomy Procedures: Hematoxylin and Eosin Stain Gross and Microscopic Level 4
[2025-02-13 10:47] VITALS: BP 101/51; PULSE 58; RESP 20; O2SAT 100
[2025-02-13 10:57] VITALS: BP 133/70; PULSE 58; RESP 20; O2SAT 100
[2025-02-13 11:07] VITALS: BP 129/70; PULSE 59; RESP 20; O2SAT 100
== END 2025-02-13 11:21 | disposition home or self-care (01) ==
PROVIDERS: PCP Internal Medicine; Referring Provider Nurse Practitioner; Visit Provider Internal Medicine Gastroenterology
PROC: 0DJD8ZZ Inspection of Lower Intestinal Tract, Via Natural or Artificial Opening Endoscopic (ICD-10-PCS; CPT 45378; principal; 2025-02-13 11:00)
DX: K58.1 Irritable bowel syndrome with constipation (principal); D12.2 Benign neoplasm of ascending colon; K64.8 Other hemorrhoids; J44.9 Chronic obstructive pulmonary disease, unspecified; I10 Essential (primary) hypertension; E78.00 Pure hypercholesterolemia, unspecified; E03.9 Hypothyroidism, unspecified; F41.9 Anxiety disorder, unspecified; M85.88 Other specified disorders of bone density and structure, other site; G89.29 Other chronic pain; M54.50 Low back pain, unspecified; M19.90 Unspecified osteoarthritis, unspecified site; Z79.891 Long term (current) use of opiate analgesic; Z79.51 Long term (current) use of inhaled steroids; Z98.890 Other specified postprocedural states; Z87.891 Personal history of nicotine dependence; Z82.49 Family history of ischemic heart disease and other diseases of the circulatory system
CPT/HCPCS: 45385; 88305; J2003; J2704; J7120